=== PATIENT | male | born 1935 | race Caucasian/White ===

== ENCOUNTER → 2018-02-18 | Outpatient (CLI) | payer MEDICARE ==
[~2018-02-18] MED LIST: AMIO200T44 PO; ASPI-1181 PO; CEPH500T PO; CILO100T PO; EZET10 PO; FURO20TA4 PO; IOPAMIDOL-370 100 ML VIAL IV ONE; ISOVUE-370 50ML VIAL IV ONE; MAGN400T40 PO; METF-445 PO; METO25TA3 PO; RIVA20TA PO; ROSU20TA PO; SPIR25TA6 PO
== END | disposition home or self-care (01) ==
LOC: OIH 08:27
PROVIDERS: ATTEND Internal Medicine Cardiovascular Disease
DX: I71.4 Abdominal aortic aneurysm, without rupture (principal); N20.0 Calculus of kidney; M71.21 Synovial cyst of popliteal space [Baker], right knee; I65.23 Occlusion and stenosis of bilateral carotid arteries; I21.9 Acute myocardial infarction, unspecified; I10 Essential (primary) hypertension
CPT/HCPCS: 75635; Q9967 ×3

== ENCOUNTER → 2018-02-26 | Outpatient (CLI) | payer MEDICARE ==
[~2018-02-26] MED LIST changes: -IOPAMIDOL-370 100 ML VIAL IV ONE; -ISOVUE-370 50ML VIAL IV ONE
== END | disposition home or self-care (01) ==
LOC: SHCH 13:40
PROVIDERS: ATTEND Internal Medicine Cardiovascular Disease
DX: I65.21 Occlusion and stenosis of right carotid artery (principal); I73.9 Peripheral vascular disease, unspecified
CPT/HCPCS: 93880

== ENCOUNTER → 2018-03-10 | Outpatient (CLI) | payer MEDICARE ==
[~2018-03-10] MED LIST changes: +IOHEXOL-350 50ML VIAL IV ONE
== END | disposition home or self-care (01) ==
LOC: RAH 07:50
PROVIDERS: ATTEND Internal Medicine Cardiovascular Disease
DX: I65.23 Occlusion and stenosis of bilateral carotid arteries (principal); I10 Essential (primary) hypertension
CPT/HCPCS: 70498; Q9967

== ENCOUNTER 2018-04-30 10:00 | Inpatient (IN) | payer MEDICARE ==
[~2018-04-30] VITALS: Ht 167.6 cm; Wt 74.1 kg
[~2018-04-30 10:00] MED LIST changes: -CEPH500T PO; -IOHEXOL-350 50ML VIAL IV ONE; -MAGN400T40 PO; -METF-445 PO; -SPIR25TA6 PO
[2018-04-30 10:53] LABS: BASOPHILS % (AUTO) 0.7 % (0.0-5.0); EOSINOPHILS % (AUTO) 1.8 % (0.0-8.0); HEMATOCRIT 31.6 % (42-54); LYMPHOCYTES % (AUTO) 10.6 % (21.0-51.0); MEAN CORPUSCULAR HEMOGLOBIN 29.2 pg (27.0-33.0); MEAN CORPUSCULAR HGB CONC 31.8 g/dL (32.0-36.0); MEAN CORPUSCULAR VOLUME 91.8 fL (79-99); NEUTROPHILS % (AUTO) 78.9 % (40.0-77.0); PLATELET COUNT (AUTO) 196 K/uL (130-400); RED BLOOD CELL COUNT(AUTO) 3.45 MIL/uL (4.50-6.20); RED CELL DISTRIBUTION WIDTH 18.4 % (11.0-15.5); WHITE BLOOD COUNT (AUTO) 5.8 K/uL (4.8-10.8)
[2018-04-30 10:57] LABS: APPEARANCE,URINE CLOUDY (CLEAR); BILIRUBIN,URINE SMALL (NEGATIVE); COLOR,URINE YELLOW (YELLOW); GLUCOSE, URINE (UA) NEGATIVE (NEGATIVE); KETONES,URINE 5 mg/dL (NEGATIVE); LEUKOCYTE ESTERASE ,URINE MODERATE (NEGATIVE); NITRATE,URINE NEGATIVE (NEGATIVE); OCCULT BLOOD,URINE LARGE (NEGATIVE); PROTEIN,URINE 100 (NEGATIVE); UROBILINOGEN,URINE >=8.0 mg/dL (0.2-1.0)
[2018-04-30 11:01] VITALS: BP 110/54
[2018-04-30 11:02] LABS: CREATININE 1.4 mg/dL (0.5-1.5); POTASSIUM 3.7 mmol/L (3.5-5.1)
[2018-04-30 11:14] LABS: BACTERIA,URINE Rare /HPF (None Seen); RBC,URINE TNTC /HPF (0-1); SQUAMOUS EPITHELIAL CELL,UR Rare /HPF (0-2); WBC,URINE 26-50 /HPF (0-1)
[2018-04-30 11:30] LABS: INR 1.12 (0.85-1.15); PARTIAL THROMBOPLASTIN TIME 34.7 SEC (26.3-35.5); PROTHROMBIN TIME 11.7 SEC (9.6-11.6)
[2018-04-30] MEDS ORDERED: SPIR25TA PO (11:34)
[2018-04-30] MEDS ORDERED: MAGN250T10 PO (11:34)
[2018-04-30] MEDS ORDERED: CIPR-278 PO (11:34)
[2018-04-30] MEDS ORDERED: FERR325T29 PO (11:34)
[2018-04-30] MEDS ORDERED: METF-444 PO (11:34)
[2018-04-30] MEDS ORDERED: GABA-529 PO (11:34)
[2018-05-02] VITALS (27 sets, daily range): BP systolic 118–180; BP diastolic 60–84
[2018-05-02] MEDS ORDERED: SODIUM CHLORIDE 0.9% 1000ML 1,000 ML IV ONE (05:47)
[2018-05-02] MEDS ORDERED: HEPARIN SODIUM 1000UNIT/ML 10ML VIAL ONE (07:12)
[2018-05-02] MEDS ORDERED: SODIUM BICARB 50MEQ 50ML VIAL ONE (07:12)
[2018-05-02] MEDS ORDERED: LIDOCAINE HCL 2% 20ML ONE (07:12)
[2018-05-02] MEDS ORDERED: IODIXANOL 320 MG/ML 100 ML VIAL ONE (07:12)
[2018-05-02] MEDS ORDERED: BACITRACIN 50,000 UNIT VIAL ONE (07:26)
[2018-05-02] MEDS ORDERED: ROCURONIUM BROMIDE 10MG/1ML 5ML VL ONE (07:59)
[2018-05-02] MEDS ORDERED: NOREPINEPHRINE BITARTRATE 1 MG/1 ML ML IV ONE (08:07)
[2018-05-02] MEDS ORDERED: VASOPRESSIN 20 UNITS/ML 1ML VIAL ONE (08:18)
[2018-05-02] MEDS ORDERED: GLYCOPYRROLATE 0.2 MG/ML 5 ML VIAL ONE (09:13)
[2018-05-02] MEDS ORDERED: NEOSTIGMINE 5MG/5ML SYR IV ONE (09:15)
[2018-05-02] MEDS ORDERED: DEXTROSE 50%-WATER 50 ML DISP.SYRIN IV PRN (09:30)
[2018-05-02] MEDS ORDERED: NOREPINEPHRINE 4MG/NS 250ML 250 ML IV PRN (09:30)
[2018-05-02] MEDS ORDERED: GLUCAGON 1MG KIT 1 MG ML IM PRN (09:30)
[2018-05-02] MEDS ORDERED: NITROGLYCERIN 50 MG/D5% WATER 250 BOT IV PRN (09:30)
[2018-05-02] MEDS ORDERED: MIDAZOLAM HCL 1 MG/ML 2ML VIAL ONE (10:08)
[2018-05-02] MEDS ORDERED: PROPOFOL 10 MG/ML 20ML VIAL IV ONE (10:08)
[2018-05-02] MEDS ORDERED: FENTANYL CITRATE PF 50 MCG/1 ML 2ML VIAL ONE (10:09)
[2018-05-02] MEDS: SODIUM CHLORIDE 0.9% 1000ML 1,000 ML IV SCH (10:11)
[2018-05-02] MEDS: INSULIN HUMULIN R 100 UNIT/ML 3ML SQ SCH ×3 (11:30→20:31)
[2018-05-02] MEDS: GABAPENTIN 100 MG CAPSULE PO SCH ×2 (13:35→20:20)
[2018-05-02] MEDS ORDERED: METHYLPREDNISOLONE SOD SUCC 125MG/2ML VIAL IVP SCH (17:15)
[2018-05-02] MEDS ORDERED: DiphenhydrAMINE HCL 50 MG/ML VIAL IV SCH (17:15)
[2018-05-02 18:26] LABS: ABG BASE EXCESS -1.8 mmol/L (-2.0-3.0); ABG HCO3 21.6 mmol/L (21.0-28.0); ABG OXYGEN SATURATION 98.2 % (95.0-99.0); ABG PCO2 33 mmHg (35-48)
[2018-05-02] MEDS: CILOSTAZOL 100 MG TAB PO SCH (20:19)
[2018-05-02] MEDS: SPIRONOLACTONE 25 MG TAB PO SCH (20:20)
[2018-05-02] MEDS: METOPROLOL TARTRATE 25 MG TAB PO SCH (20:20)
[2018-05-02] MEDS ORDERED: CEFAZOLIN SODIUM 1 GM VIAL IVP SCH (21:00)
[2018-05-02] MEDS ORDERED: RIVAROXABAN 20 MG TABLET PO SCH (21:00)
[2018-05-02] MEDS ORDERED: EZETIMIBE 10 MG TAB PO SCH (21:00)
[2018-05-02] MEDS ORDERED: ATORVASTATIN CALCIUM 40 MG TABLET PO SCH (21:00)
[2018-05-03] VITALS (17 sets, daily range): BP systolic 105–147; BP diastolic 54–83
[2018-05-03] MEDS: SODIUM CHLORIDE 0.9% 1000ML 1,000 ML IV SCH (02:09)
[2018-05-03 04:04] LABS: MEAN CORPUSCULAR HEMOGLOBIN 30.3 pg (27.0-33.0); MEAN CORPUSCULAR HGB CONC 33.3 g/dL (32.0-36.0); MEAN CORPUSCULAR VOLUME 90.9 fL (79-99); PLATELET COUNT (AUTO) 231 K/uL (130-400); RED CELL DISTRIBUTION WIDTH 18.4 % (11.0-15.5); WHITE BLOOD COUNT (AUTO) 7.2 K/uL (4.8-10.8)
[2018-05-03 04:08] LABS: CREATININE 1.2 mg/dL (0.5-1.5)
[2018-05-03] MEDS: INSULIN HUMULIN R 100 UNIT/ML 3ML SQ SCH ×2 (06:24→11:35)
[2018-05-03] MEDS: METOPROLOL TARTRATE 25 MG TAB PO SCH (08:27)
[2018-05-03] MEDS: SPIRONOLACTONE 25 MG TAB PO SCH (08:27)
[2018-05-03] MEDS: GABAPENTIN 100 MG CAPSULE PO SCH ×2 (08:27→14:23)
[2018-05-03] MEDS: CILOSTAZOL 100 MG TAB PO SCH (08:28)
[2018-05-03] MEDS ORDERED: ASPIRIN 81 MG EC TAB PO SCH (09:00)
[2018-05-03] MEDS ORDERED: AMIODARONE HCL 200 MG TABLET PO SCH (09:00)
[2018-05-03] MEDS ORDERED: MAGNESIUM OXIDE 400 MG TABLET PO SCH (09:00)
[2018-05-03] MEDS ORDERED: FERROUS SULFATE 325 MG TABLET.DR PO SCH (09:00)
[2018-05-03] MEDS ORDERED: FUROSEMIDE 20 MG TABLET PO SCH (09:00)
[2018-05-03] MEDS ORDERED: LEVOFLOXACIN 500 MG TABLET PO SCH (09:00)
[2018-05-03] MEDS ORDERED: RIVAROXABAN 20 MG TABLET PO SCH (21:00)
== END 2018-05-03 15:35 | disposition home or self-care (01) | DRG 39 ==
LOC: EDSTATUS 10:00 → DAHIP 05-02 05:30 → 2CV 05-02 09:59 → 2CH 05-02 13:13
PROVIDERS: ADMIT Internal Medicine Cardiovascular Disease; ATTEND Internal Medicine Cardiovascular Disease
PROC: 037 Upper Arteries, Dilation (ICD-10-PCS; 2018-05-02)
PROC: 03QH0ZZ Repair Right Common Carotid Artery, Open Approach (ICD-10-PCS; 2018-05-02)
PROC: 037K0DZ Dilation of Right Internal Carotid Artery with Intraluminal Device, Open Approach (ICD-10-PCS; principal; 2018-05-02 07:00)
DX: I65.21 Occlusion and stenosis of right carotid artery (principal); I25.5 Ischemic cardiomyopathy; E78.5 Hyperlipidemia, unspecified; I10 Essential (primary) hypertension; I25.10 Atherosclerotic heart disease of native coronary artery without angina pectoris; I71.4 Abdominal aortic aneurysm, without rupture; N40.0 Benign prostatic hyperplasia without lower urinary tract symptoms; Z79.01 Long term (current) use of anticoagulants; Z95.1 Presence of aortocoronary bypass graft
CPT/HCPCS: 36415; 36600; 37215; 37218; 71045; 80048; 81001; 82803; 82948; 85025; 85027; 85347; 85610; 85730; 86850; 86900; 86901; 86922; 93005; C1725; G0378; J0690; J1200; J1644; J1815; J2250; J2704; J2710; J2930; J3010; J3490; J7030; J7120; Q9967

== ENCOUNTER → 2018-05-29 | Outpatient (CLI) | payer MEDICARE ==
[~2018-05-29] MED LIST changes: +CIPR-278 PO; +FERR325T29 PO; +GABA-529 PO; +MAGN250T10 PO; +METF-444 PO; +SPIR25TA PO
== END | disposition home or self-care (01) ==
LOC: SHCH 14:45
PROVIDERS: ATTEND Internal Medicine Cardiovascular Disease
DX: I65.23 Occlusion and stenosis of bilateral carotid arteries (principal)
CPT/HCPCS: 93880

== ENCOUNTER 2020-03-09 15:40 | Inpatient (IN) | payer MEDICARE ==
[~2020-03-09] VITALS: Ht 167.6 cm; Wt 77.3 kg
[~2020-03-09 15:40] MED LIST changes: -ALOG12.52 PO; -CYAN10007 IJ; -IOHEXOL 350 MG/ML 100ML INFUS..BTL IV ONE; -IPRATROPIUM BROMIDE; -LEVO75TA10 PO; -PREG25 PO; -TRAM50TA2 PO
[2020-03-09 16:33] LABS: BASOPHILS % (AUTO) 0.5 % (0.0-5.0); EOSINOPHILS % (AUTO) 1.7 % (0.0-8.0); HEMATOCRIT 33.7 % (42-54); LYMPHOCYTES % (AUTO) 18.8 % (21.0-51.0); MEAN CORPUSCULAR HEMOGLOBIN 31.9 pg (27.0-33.0); MEAN CORPUSCULAR HGB CONC 31.8 g/dL (32.0-36.0); MEAN CORPUSCULAR VOLUME 100.6 fL (79-99); MONOCYTES % (AUTO) 7.4 % (3.0-13.0); NEUTROPHILS % (AUTO) 71.3 % (40.0-77.0); PLATELET COUNT (AUTO) 136 K/uL (130-400); RED BLOOD CELL COUNT(AUTO) 3.35 MIL/uL (4.50-6.20); RED CELL DISTRIBUTION WIDTH 14.6 % (11.0-15.5)
[2020-03-09 16:43] LABS: INR 1.63 (0.85-1.15); PARTIAL THROMBOPLASTIN TIME 37.1 SEC (26.3-35.5); PROTHROMBIN TIME 17.3 SEC (9.6-11.6)
[2020-03-09 16:56] LABS: CREATININE 1.7 mg/dL (0.5-1.5); POTASSIUM 4.5 mmol/L (3.5-5.1)
[2020-03-09 16:59] LABS: ALBUMIN 3.4 g/dL (3.5-5.0); BILIRUBIN,TOTAL 0.5 mg/dL (0.2-1.0); TOTAL PROTEIN, SERUM 6.8 g/dL (6.0-8.3)
[2020-03-09] MEDS ORDERED: GLUCAGON 1MG KIT 1 MG ML IM PRN (17:15)
[2020-03-09] MEDS ORDERED: METOPROLOL TARTRATE 1 MG/ML 5ML VIAL IV PRN (17:15)
[2020-03-09] MEDS ORDERED: ONDANSETRON HCL 4 MG/2 ML VIAL IVP PRN (17:15)
[2020-03-09] MEDS ORDERED: DEXTROSE 50%-WATER 50 ML DISP.SYRIN IV PRN (17:15)
[2020-03-09] MEDS ORDERED: ALOG12.52 PO (17:28)
[2020-03-09] MEDS ORDERED: CYAN10007 IJ (17:28)
[2020-03-09] MEDS ORDERED: LEVO75TA10 PO (17:28)
[2020-03-09] MEDS ORDERED: TRAM50TA2 PO (17:28)
[2020-03-09] MEDS ORDERED: IPRATROPIUM BROMIDE (17:28)
[2020-03-09] MEDS ORDERED: PREG25 PO (17:28)
[2020-03-09 19:04] LABS: APPEARANCE,URINE Clear (CLEAR); BILIRUBIN,URINE Negative (NEGATIVE); COLOR,URINE Yellow (YELLOW); GLUCOSE, URINE (UA) Negative (NEGATIVE); KETONES,URINE Negative (NEGATIVE); LEUKOCYTE ESTERASE ,URINE Negative (NEGATIVE); NITRATE,URINE Negative (NEGATIVE); OCCULT BLOOD,URINE Negative (NEGATIVE); PH,URINE 6.5 (5.0-8.0); PROTEIN,URINE Trace mg/dL (NEGATIVE)
[2020-03-09 19:13] LABS: RBC,URINE 0-1 /HPF (0-1); WBC,URINE 0-1 /HPF (0-1)
[2020-03-09 19:14] LABS: BACTERIA,URINE Rare /HPF (None Seen); MUCUS,URINE Rare LPF (None Seen); SQUAMOUS EPITHELIAL CELL,UR Rare /HPF (0-2)
[2020-03-09 21:09] VITALS: BP 157/86
[2020-03-09] MEDS: INSULIN HUMULIN R 100 UNIT/ML 3ML SQ SCH (23:07)
[2020-03-09 23:43] VITALS: BP 119/65
[2020-03-10] VITALS (18 sets, daily range): BP systolic 100–157; BP diastolic 57–80
[2020-03-10 05:27] LABS: BASOPHILS % (AUTO) 0.7 % (0.0-5.0); EOSINOPHILS % (AUTO) 1.7 % (0.0-8.0); LYMPHOCYTES % (AUTO) 18.8 % (21.0-51.0); MEAN CORPUSCULAR HEMOGLOBIN 32.1 pg (27.0-33.0); MEAN CORPUSCULAR VOLUME 100.3 fL (79-99); MONOCYTES % (AUTO) 9.6 % (3.0-13.0); PLATELET COUNT (AUTO) 130 K/uL (130-400); RED BLOOD CELL COUNT(AUTO) 2.99 MIL/uL (4.50-6.20); RED CELL DISTRIBUTION WIDTH 14.6 % (11.0-15.5); WHITE BLOOD COUNT (AUTO) 6.1 K/uL (4.8-10.8)
[2020-03-10 05:56] LABS: ALBUMIN 2.9 g/dL (3.5-5.0); BILIRUBIN,TOTAL 0.6 mg/dL (0.2-1.0); CREATININE 1.6 mg/dL (0.5-1.5); POTASSIUM 3.7 mmol/L (3.5-5.1); TOTAL PROTEIN, SERUM 5.9 g/dL (6.0-8.3)
[2020-03-10] MEDS: INSULIN HUMULIN R 100 UNIT/ML 3ML SQ SCH ×2 (07:16→21:00)
--- NOTE | 2020-03-10 07:40 | NUR ---
ASSESSMENT ENCOUNTERED PT A&OX3, CALM COOPERATIVE AND DOES NOT APPEAR TO BE IN ANY DISTRESS NOR ANY NEURO DEFICITS PRESENT. PT DENIES SOB, NAUSEA BUT DOES C/O CHRONIC RLE DISCOMFORT. DR GOMEZ AT BEDSIDE, UPDATE GIVEN, ORDERS RECEIVED, PT IS NPO FOR PENDING PROCEDURE BY DR GOMEZ. CALL LIGHT WITHIN REACH.
[2020-03-10] MEDS: PREGABALIN 25 MG CAP PO SCH ×2 (09:41→21:00)
[2020-03-10] MEDS: ACETAMINOPHEN 325 MG TAB PO PRN (09:41)
--- NOTE | 2020-03-10 13:30 | NUR ---
preop received pt via bed. pt in no distress. pt here for endoluminal. pt oriented to room and call light. will continue to monitor
--- NOTE | 2020-03-10 13:43 | NUR ---
IA NOT DONE. Contacts listed not answering.
[2020-03-10] MEDS ORDERED: CEFAZOLIN SODIUM 1 GM VIAL ONE (14:07)
[2020-03-10] MEDS ORDERED: HEPARIN SODIUM 1000UNIT/ML 10ML VIAL ONE (14:07)
[2020-03-10] MEDS ORDERED: IODIXANOL 320 MG/ML 100 ML VIAL ONE ×2 (14:07→17:23)
[2020-03-10] MEDS ORDERED: ONDANSETRON HCL 4 MG/2 ML VIAL ONE (14:16)
[2020-03-10] MEDS ORDERED: MIDAZOLAM HCL 1 MG/ML 2ML VIAL ONE (14:16)
[2020-03-10] MEDS ORDERED: FENTANYL CITRATE PF 50 MCG/1 ML 2ML VIAL ONE (14:16)
[2020-03-10] MEDS ORDERED: DEXAMETHASONE SOD PHOSPHATE 10MG/ML 1ML VIAL ONE (14:16)
[2020-03-10] MEDS ORDERED: LIDOCAINE PF 2% 5ML ABBOJECT ONE (14:16)
[2020-03-10] MEDS ORDERED: PROPOFOL 10 MG/ML 20ML VIAL IV ONE (14:16)
[2020-03-10] MEDS ORDERED: ROCURONIUM 10MG/1ML SYR 10 MG/ML ML ONE (14:17)
[2020-03-10] MEDS ORDERED: GLYCOPYRROLATE 1 MG/5 ML SYRINGE ONE (14:18)
[2020-03-10] MEDS ORDERED: NEOSTIGMINE 5MG/5ML SYR IV ONE (14:18)
[2020-03-10] MEDS ORDERED: EPHEDRINE SULFATE 50 MG/ML AMPULE ONE (14:19)
[2020-03-10] MEDS ORDERED: PHENYLEPHRINE HCL 10 MG/ML 1ML VIAL IV ONE (16:24)
[2020-03-10] MEDS ORDERED: ONDANSETRON HCL 4 MG/2 ML VIAL IV PRN (19:30)
[2020-03-10] MEDS ORDERED: PHARMACY COMMUNICATION MISC SCH (19:30)
[2020-03-10] MEDS ORDERED: MORPHINE SULFATE 4 MG/1ML SYG IV PRN (19:30)
[2020-03-10] MEDS ORDERED: SODIUM CHLORIDE 0.9% 1000ML 1,000 ML IV SCH (19:30)
[2020-03-10] MEDS ORDERED: NITROGLYCERIN 50 MG/D5% WATER 250 BOT IV SCH (20:15)
[2020-03-10] MEDS ORDERED: NOREPINEPHRINE 4MG/NS 250ML IV SCH (20:15)
[2020-03-10] MEDS ORDERED: IPRATROPIUM/ALBUTEROL SULFATE 3 ML SOLUTION IH PRN (22:00)
[2020-03-10] MEDS: IPRATROPIUM/ALBUTEROL SULFATE 3 ML SOLUTION IH SCH (22:42)
[2020-03-11] VITALS (73 sets, daily range): BP systolic 89–147; BP diastolic 30–90
[2020-03-11] MEDS: MORPHINE SULFATE 2 MG/ML 1ML SYG IVP PRN ×3 (02:24→23:26)
[2020-03-11] MEDS: IPRATROPIUM/ALBUTEROL SULFATE 3 ML SOLUTION IH SCH ×6 (02:55→23:07)
[2020-03-11] MEDS ORDERED: CEFAZOLIN SODIUM 1 GM VIAL ONE (03:38)
[2020-03-11 03:43] LABS: MEAN CORPUSCULAR HEMOGLOBIN 32.3 pg (27.0-33.0); MEAN CORPUSCULAR HGB CONC 31.7 g/dL (32.0-36.0); MEAN CORPUSCULAR VOLUME 101.8 fL (79-99); RED BLOOD CELL COUNT(AUTO) 2.85 MIL/uL (4.50-6.20); RED CELL DISTRIBUTION WIDTH 14.8 % (11.0-15.5); WHITE BLOOD COUNT (AUTO) 8.9 K/uL (4.8-10.8)
[2020-03-11 03:51] LABS: CREATININE 1.2 mg/dL (0.5-1.5); POTASSIUM 4.2 mmol/L (3.5-5.1)
[2020-03-11] MEDS ORDERED: CEFAZOLIN SODIUM 1 GM VIAL IVP SCH (06:00)
--- NOTE | 2020-03-11 06:10 | NUR ---
Cough Pt came up to ICU roughly 8pm. Pt continuously having strong coughing throughout night. Left groin began to bleed. Pressure was applied and dressing changed on both groins. Pt stated that he was having phlegm from sinus's lying flat and this does happen occasionally at home. Received orders for DuoNeb's Q4 for cough and PRN Q6 for SOB. Will continue to monitor sites for bleeding
[2020-03-11] MEDS: INSULIN HUMULIN R 100 UNIT/ML 3ML SQ SCH ×4 (07:30→21:00)
[2020-03-11] MEDS ORDERED: FUROSEMIDE 10 MG/ML 2ML VIAL IV SCH (07:45)
[2020-03-11] MEDS: PREGABALIN 25 MG CAP PO SCH ×2 (08:08→21:00)
[2020-03-11] MEDS: TAMSULOSIN HCL 0.4 MG CAP.ER.24H PO SCH (12:49)
[2020-03-11] MEDS: GUAIFENESIN-CODEINE 5 ML SYRUP PO PRN (12:49)
--- NOTE | 2020-03-11 15:22 | NUR ---
DC PLAN VISITED WITH PATIENT. PATIENT SLEEPING. CALLED SON TIFFANIE [phone]. SAID THAT HE HAS NOT SEEN DAD IN LONG TIME SAYS HE DOES TALK TO HIM ONCE A MONTH. SAID HE THINKS BRITTANY PARHAM DAUGHTER LIVES WITH HIM. NOT SURE ON EQUIPMENT THINKS USES A WALKER. CONFIRMED PHONE NUMBER SAID HE SPOKE TO HER YESTERDAY [phone]. [facility]TON WILL CONTINUE TO FOLLOW. Addendum: 03/11/20 at 1527 by KEVIN SMALL RN CM Amended: Links added.
--- NOTE | 2020-03-11 16:04 | NUR ---
DYSPHAGIA EVAL COMPLETED. +S/S OF ASPIRATION WITH ALL TEXTURES. RECOMMEND NPO SHORT-TERM. RECOMMENDATIONS: 1. RE-EVALUATION IN 1-2 DAYS Addendum: 03/11/20 at 1607 by DEBBIE HOLMAN, [facility] Amended: Links added.
--- NOTE | 2020-03-11 16:44 | NUR ---
DR EVANS NOTIFIED OF SPEECH THERAPY EVAL STUDIES; NO NEW ORDERS AT THIS TIME
--- NOTE | 2020-03-11 19:13 | NUR ---
HANDOFF OF CARE PATIENT PENDING TRANSFER TO 422. REPORT GIVEN TO SALINA CARO RN. OF YET, ROOM HAS NOT BEEN CLEANED, THEREFORE SENIOR C SOFTWARE DEVELOPER STAFF WILL NEED TO TRANSFER THIS PATIENT TO THE ROOM.
--- NOTE | 2020-03-11 19:30 | NUR ---
REPORT OBTAINED FROM CARSON RAMOS. PT IS BEING DOWNGRADED. WILL BE TRANSFERRED TO 422.
[2020-03-11] MEDS: METOPROLOL SUCCINATE 12.5 MG PO SCH (21:00)
[2020-03-11] MEDS ORDERED: METOPROLOL SUCCINATE 12.5 MG PO SCH (21:00)
[2020-03-11] MEDS: DOCUSATE SODIUM 100 MG CAP PO SCH (21:00)
[2020-03-11] MEDS ORDERED: NON-FORMULARY MEDICATION 1 EACH (Rosuvastatin Calcium (Crestor) 20 MG) PO SCH (21:00)
[2020-03-11] MEDS: EZETIMIBE 10 MG TAB PO SCH (21:00)
[2020-03-11] MEDS: ATORVASTATIN CALCIUM 40 MG TABLET PO SCH (21:00)
--- NOTE | 2020-03-11 22:00 | NUR ---
PT NOT GIVEN MEDICATIONS DUE TO NPO STATUS PER DR. GOMEZ. HE FAILED THE SWALLOW EXAM DONE BY [facility] UNTIL REEVALUATED IN THE AM. NO DISTRESS NOTED. PT ABLE TO STATE CONCERNS. VPACED. 70.
[2020-03-12] VITALS: BP 106/50
[2020-03-12] MEDS: IPRATROPIUM/ALBUTEROL SULFATE 3 ML SOLUTION IH SCH ×6 (02:13→21:48)
[2020-03-12 04:00] VITALS: BP 120/56
[2020-03-12 05:13] LABS: HEMATOCRIT 25.5 % (42-54); MEAN CORPUSCULAR HEMOGLOBIN 31.7 pg (27.0-33.0); MEAN CORPUSCULAR HGB CONC 31.4 g/dL (32.0-36.0); MEAN CORPUSCULAR VOLUME 101.2 fL (79-99); RED BLOOD CELL COUNT(AUTO) 2.52 MIL/uL (4.50-6.20); RED CELL DISTRIBUTION WIDTH 15.4 % (11.0-15.5); WHITE BLOOD COUNT (AUTO) 6.6 K/uL (4.8-10.8)
[2020-03-12 05:38] LABS: CREATININE 1.6 mg/dL (0.5-1.5); MAGNESIUM 1.8 mg/dL (1.80-2.40); PHOSPHORUS 3.8 mg/dL (2.5-4.9)
[2020-03-12] MEDS: INSULIN HUMULIN R 100 UNIT/ML 3ML SQ SCH ×5 (05:55→20:39)
[2020-03-12] MEDS: FERROUS SULFATE 325 MG TABLET.DR PO SCH (07:44)
[2020-03-12] MEDS: BISACODYL 5 MG TABLET.DR PO SCH (07:44)
[2020-03-12] MEDS: PREGABALIN 25 MG CAP PO SCH ×2 (07:44→19:54)
[2020-03-12] MEDS: DOCUSATE SODIUM 100 MG CAP PO SCH ×2 (07:44→19:55)
[2020-03-12] MEDS: AMIODARONE HCL 200 MG TABLET PO SCH (07:44)
[2020-03-12] MEDS: TAMSULOSIN HCL 0.4 MG CAP.ER.24H PO SCH (07:44)
[2020-03-12] MEDS ORDERED: LEVOTHYROXINE 75 MCG TABLET ONE (07:45)
[2020-03-12] MEDS: LEVOTHYROXINE 75 MCG TABLET PO SCH (07:45)
--- NOTE | 2020-03-12 08:00 | NUR ---
ASSESSMENT PT IS AAOX3 DENIES CP DENIES SOB DENIES NV. BREATHING PATTERN IS EVEN AND UNLABORED. NO VISIBLE SIGNS OF DISTRESS NOTED. BILATERAL GROIN SITES WITH DRESSINGS OVER SITES CLEAN DRY AND INTACT. I SAT PATIENT UPRIGHT IN BED TO MAX DEGREES BED WOULD ALLOW, GAVE PATIENT SMALL AMOUNTS OF APPLESAUCE AND USED CHIN TUCK METHOD, PATIENT WAS ABLE TO SWALLOW SAUCE AND NO COUGHING EXHIBITED BY PATIENT. AM MEDS GIVEN CRUSHED IN APPLE SAUCE, NO COUGHING OR CHOKING NOTED WELL. PENDING SPEECH EVAL FOR OFFICIAL RECOMMENDATIONS. CALL LIGHT WITHIN REACH.
[2020-03-12 08:36] VITALS: BP 111/58
[2020-03-12] MEDS ORDERED: FERROUS SULFATE 325 MG PO SCH (09:00)
[2020-03-12] MEDS: GUAIFENESIN-CODEINE 5 ML SYRUP PO PRN ×2 (10:56→19:54)
[2020-03-12 12:10] VITALS: BP 96/41
--- NOTE | 2020-03-12 12:30 | NUR ---
Dorys ZEPEDA REVENUE DIRECTOR ROUNDED SAW PATIENT, ORDERS RECEIVED
--- NOTE | 2020-03-12 14:35 | NUR ---
DYSPHAGIA EVAL COMPLETED. Pt CONTINUES WITH +S/S OF ASPIRATION AT THIS TIME WITH THIN LIQUIDS, PUREE, AND PUDDING TEXTURES. RECOMMEND NPO SHORT TERM. TRAFFIC SAFETY ADMINISTRATOR RECOMMENDED SHORT TERM ALTERNATE MEANS OF NUTRITION HYDRATION WITH SPEECH THERAPY 2-5X WEEK. PATIENT DID NOT AGREE TO SHORT TERM ALTERNATE MEANS OF NUTRITION HYDRATION AT THIS TIME. TRAFFIC SAFETY ADMINISTRATOR WILL FOLLOW PATIENT TOMORROW. POSSIBLE MBSS RECOMMENDED TOMORROW IF PATIENT CONTINUES WITH +S/S OF ASPIRATION WITH ALL TEXTURES. TRAFFIC SAFETY ADMINISTRATOR EDUCATED PATIENT ON RISKS AND CONSEQUENCES OF ASPIRATION AND PATIENT VOICED UNDERSTANDING. TRAFFIC SAFETY ADMINISTRATOR COORDINATED WITH NURSE CHENEY AND SUPERVISOR FARM EQUIPMENT MAINTENANCE MARIYA. RECOMMENDATIONS: 1. DYSPHAGIA THERAPY 2-5x WEEK TO INCREASE PHARYNGEAL SWALLOW: LTG#1: Pt WILL TOLERATE LEAST RESTRICTIVE DIET TO MEET NUTRITION/HYDRATION WITH NO S/S OF ASPIRATION. LTG#2: SKILLED EDUCATION Pt/FAMILY/STAFF STG#1: Pt WILL PARTICIPATE IN LARYNGEAL ELEVATION/EXCURSION EXERCISES WITH 80% ACCURACY. STG#2: Pt WILL TOLERATE ADVANCED TRIALS OF PUDDING, PUREE, AND HONEY THICK TEXTURES WITH NO OVERT S/S OF ASPIRATION. STG#3: SKILLED EDUCATION Pt/FAMILY/STAFF. Addendum: 03/12/[address] ROMY MA Amended: Links added.
[2020-03-12 17:29] VITALS: BP 118/56
[2020-03-12] MEDS: ATORVASTATIN CALCIUM 40 MG TABLET PO SCH (19:54)
[2020-03-12] MEDS: FUROSEMIDE 10 MG/ML 2ML VIAL IV SCH (19:54)
[2020-03-12] MEDS: EZETIMIBE 10 MG TAB PO SCH (19:54)
[2020-03-12] MEDS: METOPROLOL SUCCINATE 12.5 MG PO SCH (19:56)
[2020-03-12 20:08] VITALS: BP 116/63
[2020-03-12] MEDS ORDERED: CLOPIDOGREL BISULFATE 300 MG TAB PO SCH (20:40)
--- NOTE | 2020-03-12 22:40 | NUR ---
PT CONTINUES WITH COUGH. GIVEN PRN COUGH MEDICATION WITH CODEINE AND PT STILL CONTINUES COUGHING. IS ON PRECAUTIONS FOR ASPIRATION DUE TO FAILING SWALLOW TEST. WAS ORDERED TO BE GIVEN MEDS CRUSHED WITH APPLE SAUCE. NO PHLEGM NOTED.
--- NOTE | 2020-03-12 23:00 | NUR ---
PT CONTINUES COUGHING, PAGED HOSPITALIST HYDROPRESS OPERATOR. NEW ORDER FOR TESSALON PEARLS 200MG TID PRN. PT ALREADY ON DUONEBS. PT ABLE TO TAKE MEDICATIONS. COUGH MINIMIZED AFTER 20 MINUTES. PT IN BED. EYES CLOSED. NO DISTRESS NOTED.
[2020-03-12] MEDS ORDERED: BENZONATATE 100 MG CAPSULE PO ONE (23:41)
[2020-03-13 00:08] VITALS: BP 126/56
[2020-03-13] MEDS: IPRATROPIUM/ALBUTEROL SULFATE 3 ML SOLUTION IH SCH ×6 (02:46→22:47)
[2020-03-13 04:08] VITALS: BP 117/59
[2020-03-13] MEDS: INSULIN HUMULIN R 100 UNIT/ML 3ML SQ SCH ×4 (05:42→20:42)
[2020-03-13 06:03] LABS: BASOPHILS % (AUTO) 0.3 % (0.0-5.0); EOSINOPHILS % (AUTO) 2.9 % (0.0-8.0); LYMPHOCYTES % (AUTO) 5.1 % (21.0-51.0); MEAN CORPUSCULAR HEMOGLOBIN 31.9 pg (27.0-33.0); MEAN CORPUSCULAR HGB CONC 31.7 g/dL (32.0-36.0); MEAN CORPUSCULAR VOLUME 100.8 fL (79-99); MONOCYTES % (AUTO) 7.5 % (3.0-13.0); NEUTROPHILS % (AUTO) 83.7 % (40.0-77.0); PLATELET COUNT (AUTO) 89 K/uL (130-400); RED BLOOD CELL COUNT(AUTO) 2.38 MIL/uL (4.50-6.20); RED CELL DISTRIBUTION WIDTH 15.1 % (11.0-15.5); WHITE BLOOD COUNT (AUTO) 5.9 K/uL (4.8-10.8)
[2020-03-13 06:26] LABS: CREATININE 1.4 mg/dL (0.5-1.5); POTASSIUM 3.5 mmol/L (3.5-5.1)
[2020-03-13] MEDS: LEVOTHYROXINE 75 MCG TABLET PO SCH (06:26)
[2020-03-13] MEDS: GUAIFENESIN-CODEINE 5 ML SYRUP PO PRN (06:29)
[2020-03-13 07:34] VITALS: BP 113/45
[2020-03-13] MEDS: TAMSULOSIN HCL 0.4 MG CAP.ER.24H PO SCH (07:44)
[2020-03-13] MEDS: ASPIRIN 81MG TAB.CHEW PO SCH (07:44)
[2020-03-13] MEDS: AMIODARONE HCL 200 MG TABLET PO SCH (07:45)
[2020-03-13] MEDS: DOCUSATE SODIUM 100 MG CAP PO SCH ×2 (07:45→20:42)
[2020-03-13] MEDS: PREGABALIN 25 MG CAP PO SCH ×2 (07:45→20:45)
[2020-03-13] MEDS: BISACODYL 5 MG TABLET.DR PO SCH (07:45)
[2020-03-13] MEDS: FUROSEMIDE 10 MG/ML 2ML VIAL IV SCH (07:45)
[2020-03-13] MEDS: FERROUS SULFATE 325 MG TABLET.DR PO SCH (07:45)
[2020-03-13] MEDS: CLOPIDOGREL BISULFATE 75 MG TAB PO SCH (07:45)
--- NOTE | 2020-03-13 08:00 | NUR ---
ASSESSMENT PT IS AAOX3 DENIES CP DENIES SOB DENIES NV. BREATHING PATTERN IS EVEN AND UNLABORED. NO VISIBLE SIGNS OF DISTRESS NOTED. AM MEDS GIVEN CRUSHED IN APPLE SAUCE, NO COUGHING OR CHOKING NOTED. CALL LIGHT WITHIN REACH.
[2020-03-13 11:28] VITALS: BP 112/56
[2020-03-13 13:56] LABS: BASOPHILS % (AUTO) 0.2 % (0.0-5.0); EOSINOPHILS % (AUTO) 1.1 % (0.0-8.0); LYMPHOCYTES % (AUTO) 5.7 % (21.0-51.0); MEAN CORPUSCULAR HEMOGLOBIN 32.1 pg (27.0-33.0); MEAN CORPUSCULAR HGB CONC 31.7 g/dL (32.0-36.0); MEAN CORPUSCULAR VOLUME 101.3 fL (79-99); MONOCYTES % (AUTO) 7.1 % (3.0-13.0); NEUTROPHILS % (AUTO) 85.5 % (40.0-77.0); PLATELET COUNT (AUTO) 89 K/uL (130-400); RED BLOOD CELL COUNT(AUTO) 2.37 MIL/uL (4.50-6.20); WHITE BLOOD COUNT (AUTO) 5.2 K/uL (4.8-10.8)
[2020-03-13 15:24] VITALS: BP 146/65
--- NOTE | 2020-03-13 16:50 | NUR ---
SWALLOWING TREATMENT COMPLETED: MBSS RECOMMENDED. S: Pt COOPERATIVE AND AGREED TO ST THERAPY AT BEDSIDE. RADIATION MONITOR REPOSITION PATIENT TO 90 DEGREES BEFORE THERAPEUTIC TRIALS. Pt CONTINUES NPO FOR MEALS. TIMOTHY MERAZ AND NURSE CHENEY REPORT PATIENT TOOK MEDICATION WITH APPLESAUCE WITH NO S/S OF ASPIRATION DURING PRESENTATION. O: PATIENT CURRENTLY TARGETING SWALLOWING GOALS, RESULTS ARE FOLLOWS: STG#1: Pt WILL PARTICIPATE IN LARYNGEAL ELEVATION/EXCURSION EXERCISES WITH 80% ACCURACY: 70% ACCURACY; PATIENT WITH DECREASED LARYNGEAL ELEVATION/EXCURSION DURING MANUAL PALPATION. STG#2: Pt WILL TOLERATE ADVANCED TRIALS OF PUDDING, PUREE, AND HONEY THICK TEXTURES WITH NO OVERT S/S OF ASPIRATION: PATIENT CONTINUES WITH +S/S OF ASPIRATION OF IMMEDIATE SUPER COUGHS WITH PUDDING AND DELAYED SUPER COUGHS WITH THIN LIQUIDS. STG#3: SKILLED EDUCATION Pt/FAMILY/STAFF: COMPLETED. PATIENT VOICED UNDERSTANDING OF RISKS AND CONSEQUENCES OF ASPIRATION. A: PATIENT CONTINUES WITH +S/S OF ASPIRATION OF SUPER IMMEDIATE AND DELAYED COUGHS WITH ALL TEXTURES EVIDENCED BY DECREASED LARYNGEAL ELEVATION/EXCURSION DURING MANUAL PALPATION. P: RECOMMEND NPO AT THIS TIME. PATIENT AT HIGH RISK FOR ASPIRATION WITH ALL TEXTURES. MBSS RECOMMENDED AT THIS TIME. RADIATION MONITOR COORDINATED WITH NURSE CHENEY. ALL QUESTIONS ANSWERED. RECOMMEND CONTINUED SKILLED SPEECH THERAPY TARGETING SWALLOWING GOALS. RADIATION MONITOR WILL CONTINUE TO FOLLOW PATIENT. Addendum: 03/13/[address] [facility] MA Amended: Links added.
[2020-03-13 20:04] VITALS: BP 121/60
[2020-03-13] MEDS: METOPROLOL SUCCINATE 12.5 MG PO SCH (20:42)
[2020-03-13] MEDS: BENZONATATE 100 MG CAPSULE PO PRN (20:45)
[2020-03-13] MEDS: EZETIMIBE 10 MG TAB PO SCH (20:45)
[2020-03-13] MEDS: ATORVASTATIN CALCIUM 40 MG TABLET PO SCH (20:45)
[2020-03-13] MEDS: ACETAMINOPHEN 325 MG TAB PO PRN (21:01)
--- NOTE | 2020-03-13 23:00 | NUR ---
PT GIVEN TESSALON PEARLS. COUGH HAS IMPROVED. PT DOES MINIMALLY COUGH, WHEN TAKING MEDICATIONS THAT ARE CRUSHED. STATES PAIN TO LEGS. GIVEN TYLENOL WELL. PT IS CONCERNED BECAUSE ACTIVITY LEVELS HAVE DECREASED.
[2020-03-14] VITALS (7 sets, daily range): BP systolic 101–131; BP diastolic 43–65
[2020-03-14] MEDS: IPRATROPIUM/ALBUTEROL SULFATE 3 ML SOLUTION IH SCH ×6 (02:50→21:23)
[2020-03-14] MEDS: LEVOTHYROXINE 75 MCG TABLET PO SCH (05:28)
[2020-03-14] MEDS: INSULIN HUMULIN R 100 UNIT/ML 3ML SQ SCH ×4 (06:04→20:55)
[2020-03-14 06:42] LABS: BASOPHILS % (AUTO) 0.4 % (0.0-5.0); EOSINOPHILS % (AUTO) 1.8 % (0.0-8.0); HEMATOCRIT 24.2 % (42-54); LYMPHOCYTES % (AUTO) 6.4 % (21.0-51.0); MEAN CORPUSCULAR HEMOGLOBIN 31.9 pg (27.0-33.0); MEAN CORPUSCULAR HGB CONC 31.4 g/dL (32.0-36.0); MEAN CORPUSCULAR VOLUME 101.7 fL (79-99); MONOCYTES % (AUTO) 7.4 % (3.0-13.0); NEUTROPHILS % (AUTO) 83.8 % (40.0-77.0); PLATELET COUNT (AUTO) 94 K/uL (130-400); RED BLOOD CELL COUNT(AUTO) 2.38 MIL/uL (4.50-6.20); WHITE BLOOD COUNT (AUTO) 5.1 K/uL (4.8-10.8)
[2020-03-14 06:46] LABS: CREATININE 1.2 mg/dL (0.5-1.5); POTASSIUM 3.7 mmol/L (3.5-5.1)
[2020-03-14] MEDS: DOCUSATE SODIUM 100 MG CAP PO SCH ×2 (09:00→20:49)
[2020-03-14] MEDS: PREGABALIN 25 MG CAP PO SCH ×2 (09:19→20:49)
[2020-03-14] MEDS: TAMSULOSIN HCL 0.4 MG CAP.ER.24H PO SCH (09:19)
[2020-03-14] MEDS: BISACODYL 5 MG TABLET.DR PO SCH (09:20)
[2020-03-14] MEDS: BENZONATATE 100 MG CAPSULE PO PRN (09:23)
[2020-03-14] MEDS: ASPIRIN 81MG TAB.CHEW PO SCH (09:24)
[2020-03-14] MEDS: AMIODARONE HCL 200 MG TABLET PO SCH (09:25)
[2020-03-14] MEDS: CLOPIDOGREL BISULFATE 75 MG TAB PO SCH (09:25)
[2020-03-14] MEDS: FERROUS SULFATE 325 MG TABLET.DR PO SCH (09:25)
--- NOTE | 2020-03-14 12:02 | NUR ---
MBSS COMPLETED. -S/S OF ASPIRATION. RECOMMEND REGULAR TEXTURE, THIN LIQUIDS; PILLS WHOLE WITH LIQUIDS. RECOMMENDATIONS: 1. GI CONSULT AN OUTPATIENT GLASS CARRIER REVIEWED RESULTS AND RECOMMENDATIONS WITH Pt. HE VERBALIZED UNDERSTANDING AND COMPLIANCE. GLASS CARRIER COORDINATED WITH NURSE HIGGINS. NURSE CALLED AFTER MBSS TO REPORT RESULTS AND RECOMMENDATIONS VIA PHONE. ALL QUESTIONS ANSWERED AT THIS TIME. Addendum: 03/14/20 at 1204 by DEBBIE HOLMAN [facility] ST Amended: Links added.
[2020-03-14] MEDS: GUAIFENESIN-CODEINE 5 ML SYRUP PO PRN (13:05)
[2020-03-14] MEDS ORDERED: BENZONATATE 100 MG CAPSULE PO ONE (17:34)
[2020-03-14] MEDS: ACETAMINOPHEN 325 MG TAB PO PRN (17:39)
[2020-03-14] MEDS: BENZONATATE 100 MG CAPSULE PO SCH (20:49)
[2020-03-14] MEDS: EZETIMIBE 10 MG TAB PO SCH (20:49)
[2020-03-14] MEDS: ATORVASTATIN CALCIUM 40 MG TABLET PO SCH (20:49)
[2020-03-14] MEDS: METOPROLOL SUCCINATE 12.5 MG PO SCH (20:55)
[2020-03-15] MEDS: IPRATROPIUM/ALBUTEROL SULFATE 3 ML SOLUTION IH SCH ×6 (02:35→21:28)
[2020-03-15 03:42] VITALS: BP 117/59
[2020-03-15] MEDS: LEVOTHYROXINE 75 MCG TABLET PO SCH (05:23)
[2020-03-15] MEDS: BENZONATATE 100 MG CAPSULE PO SCH ×3 (05:24→21:15)
[2020-03-15] MEDS: INSULIN HUMULIN R 100 UNIT/ML 3ML SQ SCH ×4 (05:27→22:04)
[2020-03-15 05:32] LABS: BASOPHILS % (AUTO) 0.4 % (0.0-5.0); EOSINOPHILS % (AUTO) 2.2 % (0.0-8.0); HEMATOCRIT 22.8 % (42-54); LYMPHOCYTES % (AUTO) 7.1 % (21.0-51.0); MEAN CORPUSCULAR HEMOGLOBIN 31.9 pg (27.0-33.0); MEAN CORPUSCULAR VOLUME 99.6 fL (79-99); MONOCYTES % (AUTO) 8.5 % (3.0-13.0); NEUTROPHILS % (AUTO) 81.6 % (40.0-77.0); PLATELET COUNT (AUTO) 111 K/uL (130-400); RED BLOOD CELL COUNT(AUTO) 2.29 MIL/uL (4.50-6.20); RED CELL DISTRIBUTION WIDTH 14.8 % (11.0-15.5); WHITE BLOOD COUNT (AUTO) 4.5 K/uL (4.8-10.8)
[2020-03-15 06:05] LABS: ALBUMIN 2.4 g/dL (3.5-5.0); CREATININE 1.2 mg/dL (0.5-1.5); POTASSIUM 3.2 mmol/L (3.5-5.1); THYROID STIMULATING HORMONE 1.02 uIU/mL (0.36-3.74); TOTAL PROTEIN, SERUM 5.4 g/dL (6.0-8.3)
[2020-03-15 08:55] VITALS: BP 135/63
[2020-03-15] MEDS: DOCUSATE SODIUM 100 MG CAP PO SCH ×2 (09:03→21:16)
[2020-03-15] MEDS: PREGABALIN 25 MG CAP PO SCH ×2 (09:03→21:16)
[2020-03-15] MEDS: AMIODARONE HCL 200 MG TABLET PO SCH (09:04)
[2020-03-15] MEDS: CLOPIDOGREL BISULFATE 75 MG TAB PO SCH (09:04)
[2020-03-15] MEDS: FAMOTIDINE 20MG TAB 20 MG TAB PO SCH (09:04)
[2020-03-15] MEDS: FERROUS SULFATE 325 MG TABLET.DR PO SCH (09:04)
[2020-03-15] MEDS: BISACODYL 5 MG TABLET.DR PO SCH (09:04)
[2020-03-15] MEDS: TAMSULOSIN HCL 0.4 MG CAP.ER.24H PO SCH (09:04)
[2020-03-15] MEDS: ACETAMINOPHEN 325 MG TAB PO PRN ×2 (09:05→21:16)
[2020-03-15] MEDS: ASPIRIN 81MG TAB.CHEW PO SCH (09:05)
[2020-03-15] MEDS ORDERED: POTASSIUM CHLORIDE 10% ELIXIR 20 MEQ/15 ML UDCUP PO PRN (09:45)
[2020-03-15] MEDS ORDERED: POTASSIUM CHLORIDE 20MEQ/100ML 100 ML IV PRN (09:45)
[2020-03-15] MEDS ORDERED: LIDOCAINE HCL-MPF 1% 2ML VIAL IV PRN (09:45)
[2020-03-15] MEDS: CEFTRIAXONE SODIUM 1 GM IVP SCH (11:48)
[2020-03-15 12:00] VITALS: BP 125/58
--- NOTE | 2020-03-15 13:46 | NUR ---
CM NOTE/DECLINED SNF MET WITH PATIENT AT BEDSIDE TO DISCUSS DC PLANNING. PATIENT, WISHES TO GO HOME AND DECLINING SNF AT THE MOMENT. STATES " I WENT TO A [facility] LAST TIME I GOT SURGERY AND I REALLY DIDNT FEEL THEY PROGRESSED MY PHYSICAL THERAPY MORE THAN I WOULD HAVE DONE IF I WENT HOME WITH HOME HEALTH". PATIENT STATES HE IS A AND [facility] WITH PT ORDERS. BRINDA HAZEL FLUORESCENT LIGHTING MODEL MAKER MADE AWARE. PRIMARY NURSE TO BE MADE AWARE WHEN RETURN FROM LUNCH.
--- NOTE | 2020-03-15 15:22 | NUR ---
DR. CORTES IN ROOM SPEAKING WITH PT. RE:PLAN OF CARE. QUESTIONS ANSWERED BY DR. CORTES.
[2020-03-15 16:00] VITALS: BP 132/62
[2020-03-15] MEDS: POTASSIUM CHLORIDE 20 MEQ ERTAB PO PRN ×2 (16:03→18:31)
[2020-03-15 19:52] VITALS: BP 128/61
[2020-03-15] MEDS: METOPROLOL SUCCINATE 12.5 MG PO SCH (21:00)
[2020-03-15] MEDS: EZETIMIBE 10 MG TAB PO SCH (21:15)
[2020-03-15] MEDS: ATORVASTATIN CALCIUM 40 MG TABLET PO SCH (21:16)
--- NOTE | 2020-03-15 21:59 | NUR ---
toprol xl patient takes 12.5 of toprol at home. has not received medication. spoke with pharmacist, states we need an md order to switch to lopressor 12.5mg daily but it is not the exact equivalent. other option is for oral compound medication but would need md approval due to cost. attempted to get in contact with family so that they could bring medication tmw granddaughter tamica [phone]- line not working son, ldela-[phone]- no answer
[2020-03-15 23:47] VITALS: BP 100/52
[2020-03-16] MEDS: IPRATROPIUM/ALBUTEROL SULFATE 3 ML SOLUTION IH SCH ×6 (01:35→23:59)
[2020-03-16 04:05] VITALS: BP 139/69
[2020-03-16] MEDS: BENZONATATE 100 MG CAPSULE PO SCH ×3 (05:00→21:10)
[2020-03-16 06:05] LABS: BASOPHILS % (AUTO) 0.8 % (0.0-5.0); EOSINOPHILS % (AUTO) 2.1 % (0.0-8.0); HEMATOCRIT 23.1 % (42-54); LYMPHOCYTES % (AUTO) 8.7 % (21.0-51.0); MEAN CORPUSCULAR HEMOGLOBIN 32.6 pg (27.0-33.0); MEAN CORPUSCULAR HGB CONC 32.5 g/dL (32.0-36.0); MEAN CORPUSCULAR VOLUME 100.4 fL (79-99); MONOCYTES % (AUTO) 12.3 % (3.0-13.0); NEUTROPHILS % (AUTO) 75.5 % (40.0-77.0); PLATELET COUNT (AUTO) 127 K/uL (130-400); RED CELL DISTRIBUTION WIDTH 14.8 % (11.0-15.5); WHITE BLOOD COUNT (AUTO) 4.7 K/uL (4.8-10.8)
[2020-03-16] MEDS: INSULIN HUMULIN R 100 UNIT/ML 3ML SQ SCH ×4 (06:21→21:12)
[2020-03-16 06:27] LABS: ALBUMIN 2.4 g/dL (3.5-5.0); CREATININE 1.2 mg/dL (0.5-1.5); POTASSIUM 3.3 mmol/L (3.5-5.1); TOTAL PROTEIN, SERUM 5.5 g/dL (6.0-8.3)
[2020-03-16] MEDS: LEVOTHYROXINE 75 MCG TABLET PO SCH (07:02)
[2020-03-16] MEDS ORDERED: SODIUM CHLORIDE 3% FOR INHALATION 4 ML/AMP VIAL.NEB IH ONE (07:11)
[2020-03-16] MEDS: DOCUSATE SODIUM 100 MG CAP PO SCH ×2 (07:54→21:10)
[2020-03-16] MEDS: CLOPIDOGREL BISULFATE 75 MG TAB PO SCH (07:55)
[2020-03-16] MEDS: PREGABALIN 25 MG CAP PO SCH ×2 (07:55→21:10)
[2020-03-16] MEDS: AMIODARONE HCL 200 MG TABLET PO SCH (07:55)
[2020-03-16] MEDS: FERROUS SULFATE 325 MG TABLET.DR PO SCH (07:55)
[2020-03-16] MEDS: ASPIRIN 81MG TAB.CHEW PO SCH (07:55)
[2020-03-16] MEDS: FAMOTIDINE 20MG TAB 20 MG TAB PO SCH (07:55)
[2020-03-16] MEDS: TAMSULOSIN HCL 0.4 MG CAP.ER.24H PO SCH (07:55)
--- NOTE | 2020-03-16 08:15 | NUR ---
ASSESSMENT PT IS AAOX3 DENIES CP DENIES SOB, BREATHING PATTERN IS EVEN AND UNLABORED. DENIES NV, NO COMPLAINTS RESTING IN BED. AM MEDS GIVEN, NO COUGHING OR CHOKING NOTED, TOLERATED MEAL. CALL LIGHT WITHIN REACH.
[2020-03-16] MEDS: BISACODYL 5 MG TABLET.DR PO SCH (09:00)
[2020-03-16 09:30] VITALS: BP 138/60
[2020-03-16] MEDS: CEFTRIAXONE SODIUM 1 GM IVP SCH (11:17)
[2020-03-16 12:50] VITALS: BP 143/79
--- NOTE | 2020-03-16 15:08 | NUR ---
FOLLOW UP COMPLETED. Pt CURRENTLY TOLERATING REGULAR TEXTURE, THIN LIQUIDS. NO OVERT S/S OF ASPIRATION AT THIS TIME. CYLINDER INSPECTOR AND TESTER COORDINATED WITH NURSE CHENEY. SKILLED SPEECH THERAPY IS NOT RECOMMENDED AT THIS TIME. Addendum: 03/16/20 at 1513 by DEBBIE HOLMAN, [facility] ST Amended: Links added.
--- NOTE | 2020-03-16 15:29 | NUR ---
HOSPITALIST ROUNDING QUESTIONS HOME [facility] FOR DISCHARGE I CALLED DR GOMEZ, UPDATES GIVEN TO DR GOMEZ HE STATES OK TO RESUME ALL HOME MEDS
[2020-03-16] MEDS ORDERED: RIVAROXABAN 20 MG TABLET PO SCH (15:30)
[2020-03-16 16:00] VITALS: BP 120/63
[2020-03-16] MEDS: GUAIFENESIN-CODEINE 5 ML SYRUP PO PRN (16:13)
[2020-03-16] MEDS: BENZOCAINE/MENTH/CETYLPYRD CL 1 EACH LOZENGE MM PRN (16:17)
[2020-03-16 20:32] VITALS: BP 145/71
[2020-03-16] MEDS: METOPROLOL SUCCINATE 12.5 MG PO SCH (21:00)
[2020-03-16] MEDS: ATORVASTATIN CALCIUM 40 MG TABLET PO SCH (21:10)
[2020-03-16] MEDS: EZETIMIBE 10 MG TAB PO SCH (21:10)
[2020-03-16 23:55] VITALS: BP 146/65
[2020-03-17] MEDS: BENZOCAINE/MENTH/CETYLPYRD CL 1 EACH LOZENGE MM PRN (01:45)
[2020-03-17 04:16] VITALS: BP 141/64
[2020-03-17] MEDS: BENZONATATE 100 MG CAPSULE PO SCH ×3 (04:46→20:58)
[2020-03-17 05:23] LABS: BASOPHILS % (AUTO) 0.5 % (0.0-5.0); EOSINOPHILS % (AUTO) 1.1 % (0.0-8.0); HEMATOCRIT 25.3 % (42-54); MEAN CORPUSCULAR HEMOGLOBIN 31.9 pg (27.0-33.0); MEAN CORPUSCULAR VOLUME 99.6 fL (79-99); MONOCYTES % (AUTO) 9.6 % (3.0-13.0); NEUTROPHILS % (AUTO) 79.7 % (40.0-77.0); PLATELET COUNT (AUTO) 146 K/uL (130-400); RED BLOOD CELL COUNT(AUTO) 2.54 MIL/uL (4.50-6.20); WHITE BLOOD COUNT (AUTO) 5.6 K/uL (4.8-10.8)
[2020-03-17] MEDS: INSULIN HUMULIN R 100 UNIT/ML 3ML SQ SCH ×4 (05:23→21:06)
[2020-03-17 05:30] LABS: CREATININE 1.1 mg/dL (0.5-1.5); POTASSIUM 3.7 mmol/L (3.5-5.1)
[2020-03-17] MEDS: LEVOTHYROXINE 75 MCG TABLET PO SCH (06:22)
[2020-03-17] MEDS: IPRATROPIUM/ALBUTEROL SULFATE 3 ML SOLUTION IH SCH ×4 (06:42→23:36)
[2020-03-17 07:57] VITALS: BP 134/65
--- NOTE | 2020-03-17 08:00 | NUR ---
ASSESSMENT PT IS AAOX3 DENIES CP DENIES SOB, BREATHING PATTERN IS EVEN AND UNLABORED. DENIES NV, NO COMPLAINTS RESTING SITTING UP AT BEDSIDE. AM MEDS GIVEN, CALL LIGHT WITHIN REACH.
[2020-03-17] MEDS: FERROUS SULFATE 325 MG TABLET.DR PO SCH (08:10)
[2020-03-17] MEDS: FAMOTIDINE 20MG TAB 20 MG TAB PO SCH (08:10)
[2020-03-17] MEDS: AMIODARONE HCL 200 MG TABLET PO SCH (08:10)
[2020-03-17] MEDS: TAMSULOSIN HCL 0.4 MG CAP.ER.24H PO SCH (08:10)
[2020-03-17] MEDS: BISACODYL 5 MG TABLET.DR PO SCH (08:10)
[2020-03-17] MEDS: CLOPIDOGREL BISULFATE 75 MG TAB PO SCH (08:10)
[2020-03-17] MEDS: PREGABALIN 25 MG CAP PO SCH ×2 (08:10→20:58)
[2020-03-17] MEDS: DOCUSATE SODIUM 100 MG CAP PO SCH ×2 (08:10→20:57)
[2020-03-17] MEDS: RIVAROXABAN 20 MG TABLET PO SCH (08:10)
[2020-03-17] MEDS: ASPIRIN 81MG TAB.CHEW PO SCH (08:11)
[2020-03-17] MEDS: CEFTRIAXONE SODIUM 1 GM IVP SCH (10:38)
--- NOTE | 2020-03-17 12:30 | NUR ---
NEVA AGUIRRE ROUNDED SAW PATIENT ORDERS RECEIVED
[2020-03-17 12:39] VITALS: BP 137/54
[2020-03-17] MEDS ORDERED: PREDNISONE 20 MG TABLET PO SCH (13:00)
[2020-03-17] MEDS: AMOXICILLIN/POTASSIUM CLAV 875-125 TABLET PO SCH (13:03)
[2020-03-17 16:21] VITALS: BP 159/85
[2020-03-17] MEDS: BUDESONIDE 0.5 MG/2 ML INH IH SCH (18:38)
[2020-03-17 19:00] VITALS: BP 140/74
[2020-03-17] MEDS: ATORVASTATIN CALCIUM 40 MG TABLET PO SCH (20:58)
[2020-03-17] MEDS: EZETIMIBE 10 MG TAB PO SCH (20:58)
[2020-03-17] MEDS: METOPROLOL SUCCINATE 12.5 MG PO SCH (21:00)
[2020-03-17 23:21] VITALS: BP 152/72
[2020-03-18] MEDS: AMOXICILLIN/POTASSIUM CLAV 875-125 TABLET PO SCH (00:45)
[2020-03-18 03:57] VITALS: BP 135/67
[2020-03-18 05:17] LABS: BASOPHILS % (AUTO) 0.2 % (0.0-5.0); LYMPHOCYTES % (AUTO) 3.6 % (21.0-51.0); MEAN CORPUSCULAR HGB CONC 32.4 g/dL (32.0-36.0); MEAN CORPUSCULAR VOLUME 98.8 fL (79-99); MONOCYTES % (AUTO) 7.4 % (3.0-13.0); NEUTROPHILS % (AUTO) 87.7 % (40.0-77.0); PLATELET COUNT (AUTO) 171 K/uL (130-400); RED BLOOD CELL COUNT(AUTO) 2.53 MIL/uL (4.50-6.20); RED CELL DISTRIBUTION WIDTH 15.1 % (11.0-15.5); WHITE BLOOD COUNT (AUTO) 6.6 K/uL (4.8-10.8)
[2020-03-18] MEDS: BENZONATATE 100 MG CAPSULE PO SCH (05:25)
[2020-03-18 05:50] LABS: ALBUMIN 2.5 g/dL (3.5-5.0); BILIRUBIN,TOTAL 0.9 mg/dL (0.2-1.0); CREATININE 1.2 mg/dL (0.5-1.5); POTASSIUM 3.7 mmol/L (3.5-5.1); TOTAL PROTEIN, SERUM 6.1 g/dL (6.0-8.3)
[2020-03-18] MEDS: LEVOTHYROXINE 75 MCG TABLET PO SCH (05:57)
[2020-03-18] MEDS: INSULIN HUMULIN R 100 UNIT/ML 3ML SQ SCH (06:01)
[2020-03-18] MEDS: BUDESONIDE 0.5 MG/2 ML INH IH SCH (06:40)
[2020-03-18] MEDS: IPRATROPIUM/ALBUTEROL SULFATE 3 ML SOLUTION IH SCH ×2 (06:40→11:09)
--- NOTE | 2020-03-18 07:40 | NUR ---
ASSESSMENT ENCOUNTERED PT A&OX3, CALM COOPERATIVE AND DOES NOT APPEAR TO BE IN ANY DISTRESS NOR ANY NEURO DEFICITS PRESENT. PT DENIES PAIN, SOB, NAUSEA. DP/PT PULSES PALPABLE. PT IS AMBULATORY, GAIT SLOW BUT STEADY WITH ASSIST. CALL LIGHT WITHIN REACH.
[2020-03-18 08:00] VITALS: BP 137/65
[2020-03-18] MEDS: CEFTRIAXONE SODIUM 1 GM IVP SCH (09:05)
[2020-03-18] MEDS: ACETAMINOPHEN 325 MG TAB PO PRN (09:05)
[2020-03-18] MEDS: PREGABALIN 25 MG CAP PO SCH (09:06)
[2020-03-18] MEDS: RIVAROXABAN 20 MG TABLET PO SCH (09:06)
[2020-03-18] MEDS: AMIODARONE HCL 200 MG TABLET PO SCH (09:06)
[2020-03-18] MEDS: BISACODYL 5 MG TABLET.DR PO SCH (09:06)
[2020-03-18] MEDS: TAMSULOSIN HCL 0.4 MG CAP.ER.24H PO SCH (09:06)
[2020-03-18] MEDS: FAMOTIDINE 20MG TAB 20 MG TAB PO SCH (09:07)
[2020-03-18] MEDS: FERROUS SULFATE 325 MG TABLET.DR PO SCH (09:07)
[2020-03-18] MEDS: CLOPIDOGREL BISULFATE 75 MG TAB PO SCH (09:07)
[2020-03-18] MEDS: DOCUSATE SODIUM 100 MG CAP PO SCH (09:07)
[2020-03-18] MEDS ORDERED: BUDE180H IH (11:52)
[2020-03-18] MEDS ORDERED: RIVA20TA PO (11:52)
[2020-03-18] MEDS ORDERED: FERR325T22 PO (11:52)
[2020-03-18] MEDS ORDERED: CLOP75TA14 PO (11:52)
[2020-03-18] MEDS ORDERED: PRED50TA2 PO (11:52)
[2020-03-18] MEDS ORDERED: ALBU0.63 IH (11:52)
[2020-03-18] MEDS ORDERED: DOCU-116 PO (11:52)
[2020-03-18] MEDS ORDERED: AMOX-429 PO (11:52)
[2020-03-18] MEDS ORDERED: nebulizer (11:55)
[2020-03-18] MEDS ORDERED: nebulizer NEB (11:55)
[2020-03-18 12:00] VITALS: BP 115/55
--- NOTE | 2020-03-18 16:00 | NUR ---
DISCHARGE INSTRUCTIONS GIVEN, PIV REMOVED AND INTACT, DISCHARGED HOME TO FAMILY VEHICLE VIA WHEELCHAIR.
== END 2020-03-18 16:40 | disposition home health service (06) | DRG 268 ==
LOC: EDH 15:40 → EDHIP 15:41 → 4DH 21:05 → 2DH 03-10 17:28 → 4DH 03-11 20:14
PROVIDERS: ADMIT Hospitalist; ATTEND Hospitalist
PROC: 04V03DZ Restriction of Abdominal Aorta with Intraluminal Device, Percutaneous Approach (ICD-10-PCS; principal; 2020-03-10)
PROC: 04753DZ Dilation of Superior Mesenteric Artery with Intraluminal Device, Percutaneous Approach (ICD-10-PCS; 2020-03-10)
PROC: 04VD3DZ Restriction of Left Common Iliac Artery with Intraluminal Device, Percutaneous Approach (ICD-10-PCS; 2020-03-10)
PROC: B410YZZ Fluoroscopy of Abdominal Aorta using Other Contrast (ICD-10-PCS; 2020-03-10)
PROC: B414YZZ Fluoroscopy of Superior Mesenteric Artery using Other Contrast (ICD-10-PCS; 2020-03-10)
PROC: B41BYZZ Fluoroscopy of Other Intra-Abdominal Arteries using Other Contrast (ICD-10-PCS; 2020-03-10)
PROC: B418YZZ Fluoroscopy of Bilateral Renal Arteries using Other Contrast (ICD-10-PCS; 2020-03-10)
PROC: 04VC3DZ Restriction of Right Common Iliac Artery with Intraluminal Device, Percutaneous Approach (ICD-10-PCS; 2020-03-10)
DX: I71.3 Abdominal aortic aneurysm, ruptured (principal); J69.0 Pneumonitis due to inhalation of food and vomit; I50.33 Acute on chronic diastolic (congestive) heart failure; I48.21 Permanent atrial fibrillation; K55.1 Chronic vascular disorders of intestine; I25.10 Atherosclerotic heart disease of native coronary artery without angina pectoris; I71.2 Thoracic aortic aneurysm, without rupture; E03.9 Hypothyroidism, unspecified; D64.9 Anemia, unspecified; E11.51 Type 2 diabetes mellitus with diabetic peripheral angiopathy without gangrene; E78.5 Hyperlipidemia, unspecified; I11.0 Hypertensive heart disease with heart failure; I65.23 Occlusion and stenosis of bilateral carotid arteries; I25.5 Ischemic cardiomyopathy; M79.81 Nontraumatic hematoma of soft tissue; I71.00 Dissection of unspecified site of aorta; I72.3 Aneurysm of iliac artery; N40.0 Benign prostatic hyperplasia without lower urinary tract symptoms; I51.3 Intracardiac thrombosis, not elsewhere classified; Z95.0 Presence of cardiac pacemaker; Z86.79 Personal history of other diseases of the circulatory system; Z83.3 Family history of diabetes mellitus; Z82.5 Family history of asthma and other chronic lower respiratory diseases; Z82.49 Family history of ischemic heart disease and other diseases of the circulatory system; Z82.0 Family history of epilepsy and other diseases of the nervous system; Z82.3 Family history of stroke; Z72.0 Tobacco use; Z79.899 Other long term (current) drug therapy; Z79.82 Long term (current) use of aspirin; Z87.442 Personal history of urinary calculi
CPT/HCPCS: 34705; 34712; 34713; 36245; 36415; 37236; 71045; 74230; 75726; 76882; 80048; 80053; 81001; 82948; 83735; 83880; 84100; 84443; 85025; 85027; 85347; 85610; 85730; 86850; 86900; 86901; 86923; 87071; 87205; 92526; 92610; 92611; 94640; 94664; 97039; A4344; A4606; C1725; C1760; C1769; C1887; C1894; G0378; J0690; J0696; J1100; J1644; J1815; J1940; J2001; J2250; J2270; J2370; J2405; J2704; J2710; J3010; J3490; J7030; Q9967

== ENCOUNTER → 2020-03-09 | Outpatient (CLI) | payer MEDICARE ==
[~2020-03-09] MED LIST changes: +ALOG12.52 PO; -ASPI-1181 PO; +ASPI-1443 PO; +CYAN10007 IJ; -EZET10 PO; +EZET10TA13 PO; +IOHEXOL 350 MG/ML 100ML INFUS..BTL IV ONE; +IPRATROPIUM BROMIDE; +LEVO75TA10 PO; +PREG25 PO; -ROSU20TA PO; +ROSU20TA23 PO; +TRAM50TA2 PO
== END | disposition home or self-care (01) ==
LOC: RAH 08:23
PROVIDERS: ATTEND Internal Medicine Cardiovascular Disease
DX: I25.5 Ischemic cardiomyopathy (principal); I10 Essential (primary) hypertension; I25.10 Atherosclerotic heart disease of native coronary artery without angina pectoris; R18.8 Other ascites; N28.1 Cyst of kidney, acquired
CPT/HCPCS: 71275; 74174; Q9967

== ENCOUNTER → 2020-04-08 | Outpatient (CLI) | payer MEDICARE ==
[~2020-04-08] MED LIST changes: +ALBU0.63 IH; +ALOG12.52 PO; +AMOX-429 PO; -ASPI-1443 PO; +BUDE180H IH; -CILO100T PO; -CIPR-278 PO; +CLOP75TA14 PO; +DOCU-116 PO; +FERR325T22 PO; -FERR325T29 PO; -GABA-529 PO; +IOHEXOL 350 MG/ML 100ML INFUS..BTL IV ONE; +LEVO75TA10 PO; -MAGN250T10 PO; -METO25TA3 PO; +PRED50TA2 PO; +PREG25 PO; -SPIR25TA PO; +nebulizer; +nebulizer NEB
== END | disposition home or self-care (01) ==
LOC: RAH 09:33
PROVIDERS: ATTEND Internal Medicine Cardiovascular Disease
DX: S36.92XA Contusion of unspecified intra-abdominal organ, initial encounter (principal); K68.9 Other disorders of retroperitoneum; N28.1 Cyst of kidney, acquired; N20.0 Calculus of kidney; I71.9 Aortic aneurysm of unspecified site, without rupture; K40.90 Unilateral inguinal hernia, without obstruction or gangrene, not specified as recurrent; K76.0 Fatty (change of) liver, not elsewhere classified; I70.0 Atherosclerosis of aorta; M47.816 Spondylosis without myelopathy or radiculopathy, lumbar region; Z95.818 Presence of other cardiac implants and grafts; X58.XXXA Exposure to other specified factors, initial encounter; Y93.89 Activity, other specified; Y92.89 Other specified places as the place of occurrence of the external cause; Y99.8 Other external cause status
CPT/HCPCS: 74174; 76700; Q9967

== ENCOUNTER → 2020-05-27 | Outpatient (CLI) | payer MEDICARE ==
[~2020-05-27] MED LIST changes: -IOHEXOL 350 MG/ML 100ML INFUS..BTL IV ONE; +NITR0.4T50 SL
[2020-05-27 09:07] LABS: BASOPHILS % (AUTO) 0.4 % (0.0-5.0); EOSINOPHILS % (AUTO) 0.9 % (0.0-8.0); HEMATOCRIT 33.6 % (42-54); LYMPHOCYTES % (AUTO) 10.3 % (21.0-51.0); MEAN CORPUSCULAR HEMOGLOBIN 28.8 pg (27.0-33.0); MEAN CORPUSCULAR HGB CONC 30.4 g/dL (32.0-36.0); MEAN CORPUSCULAR VOLUME 94.9 fL (79-99); MONOCYTES % (AUTO) 7.7 % (3.0-13.0); NEUTROPHILS % (AUTO) 80.6 % (40.0-77.0); PLATELET COUNT (AUTO) 142 K/uL (130-400); RED BLOOD CELL COUNT(AUTO) 3.54 MIL/uL (4.50-6.20); RED CELL DISTRIBUTION WIDTH 15.6 % (11.0-15.5); WHITE BLOOD COUNT (AUTO) 6.8 K/uL (4.8-10.8)
[2020-05-27 09:34] LABS: CREATININE 2.2 mg/dL (0.5-1.5); POTASSIUM 4.4 mmol/L (3.5-5.1)
[2020-05-27 09:37] LABS: APPEARANCE,URINE Clear (CLEAR); BILIRUBIN,URINE Negative (NEGATIVE); COLOR,URINE Yellow (YELLOW); GLUCOSE, URINE (UA) Negative (NEGATIVE); KETONES,URINE Trace mg/dL (NEGATIVE); LEUKOCYTE ESTERASE ,URINE Trace (NEGATIVE); NITRATE,URINE Negative (NEGATIVE); OCCULT BLOOD,URINE Small (NEGATIVE); PH,URINE 5.5 (5.0-8.0); PROTEIN,URINE POS 2+ mg/dL (NEGATIVE)
[2020-05-27 10:00] LABS: BACTERIA,URINE Few /HPF (None Seen); SQUAMOUS EPITHELIAL CELL,UR Few /HPF (0-2)
== END | disposition home or self-care (01) ==
LOC: DAH 05-24 10:00 → EDSTATUS 08:00 → DAH 10:00 → EDSTATUS 05-30 08:00
PROVIDERS: ATTEND Internal Medicine Cardiovascular Disease
DX: Z01.812 Encounter for preprocedural laboratory examination (principal); Z20.822 Contact with and (suspected) exposure to COVID-19; R94.31 Abnormal electrocardiogram [ECG] [EKG]; R91.8 Other nonspecific abnormal finding of lung field; I51.7 Cardiomegaly; Z95.0 Presence of cardiac pacemaker
CPT/HCPCS: 36415; 71045; 80048; 81001; 85025; 86850; 86900; 86901; 86923; 87088; 93005; U0003

== ENCOUNTER 2020-06-01 10:33 | Inpatient (IN) | payer OTHER, MEDICARE ==
[~2020-06-01] VITALS: Ht 167.6 cm; Wt 69.9 kg
[~2020-06-01 10:33] MED LIST changes: -NITR0.4T50 SL
[2020-06-01 11:14] LABS: BASOPHILS % (AUTO) 0.4 % (0.0-5.0); EOSINOPHILS % (AUTO) 0.2 % (0.0-8.0); HEMATOCRIT 34.5 % (42-54); LYMPHOCYTES % (AUTO) 5.6 % (21.0-51.0); MEAN CORPUSCULAR HEMOGLOBIN 28.7 pg (27.0-33.0); MEAN CORPUSCULAR HGB CONC 31.3 g/dL (32.0-36.0); MEAN CORPUSCULAR VOLUME 91.8 fL (79-99); MONOCYTES % (AUTO) 10.7 % (3.0-13.0); NEUTROPHILS % (AUTO) 82.9 % (40.0-77.0); NUCLEATED RED BLOOD CELLS 0.4 % (0.0-0.19); PLATELET COUNT (AUTO) 152 K/uL (130-400); RED BLOOD CELL COUNT(AUTO) 3.76 MIL/uL (4.50-6.20); RED CELL DISTRIBUTION WIDTH 15.9 % (11.0-15.5); WHITE BLOOD COUNT (AUTO) 8.2 K/uL (4.8-10.8)
[2020-06-01 11:36] LABS: B-TYPE NATRIURETIC PEPTIDE 1140 pg/mL (0-100)
[2020-06-01 11:41] LABS: CREATININE 2.4 mg/dL (0.5-1.5); POTASSIUM 4.5 mmol/L (3.5-5.1)
[2020-06-01 11:46] LABS: ALBUMIN 3.4 g/dL (3.5-5.0); BILIRUBIN,TOTAL 1.5 mg/dL (0.2-1.0)
[2020-06-01] MEDS ORDERED: LIDOCAINE HCL-MPF 1% 2ML VIAL IV PRN (12:15)
[2020-06-01] MEDS ORDERED: POTASSIUM CHLORIDE 10% ELIXIR 20 MEQ/15 ML UDCUP PO PRN (12:15)
[2020-06-01] MEDS ORDERED: KCL 20 MEQ ERTAB PO PRN (12:15)
[2020-06-01] MEDS ORDERED: POTASSIUM CHLORIDE 10MEQ/100ML 100 ML IV PRN (12:15)
[2020-06-01 12:41] VITALS: BP 148/91
[2020-06-01 14:17] LABS: CREATINE KINASE, TOTAL 117 U/L (21-232); MYOGLOBIN 144 ng/mL (10-92); TROPONIN I < 0.04 ng/mL (0.00-0.06)
[2020-06-01] MEDS ORDERED: CLONIDINE HCL 0.1 MG TABLET PO PRN (15:00)
[2020-06-01] MEDS ORDERED: GUAIFENESIN-DM 200/20 MG 10 ML PO PRN (15:00)
[2020-06-01] MEDS ORDERED: NITROGLYCERIN 0.4 MG SL TAB SL PRN (15:00)
[2020-06-01] MEDS ORDERED: DEXTROSE 50%-WATER 50 ML DISP.SYRIN IV PRN (15:00)
[2020-06-01] MEDS ORDERED: DiphenhydrAMINE HCL 50 MG/ML VIAL IVP PRN (15:00)
[2020-06-01] MEDS ORDERED: GLUCAGON 1MG KIT 1 MG ML IM PRN (15:00)
[2020-06-01] MEDS: FUROSEMIDE 40MG VIAL IV SCH ×2 (15:10→23:53)
[2020-06-01 16:30] VITALS: BP 154/83
[2020-06-01] MEDS ORDERED: INSULIN R PO SSI SQ SCH (16:30)
[2020-06-01] MEDS: INSULIN HUMULIN R 100 UNIT/ML 3ML SQ SCH ×2 (16:30→21:49)
[2020-06-01 19:59] VITALS: BP 144/69
[2020-06-01] MEDS: CARVEDILOL 12.5 MG TABLET PO SCH (21:46)
[2020-06-01 23:09] VITALS: BP 132/69
[2020-06-02] VITALS (12 sets, daily range): BP systolic 88–137; BP diastolic 47–84
[2020-06-02 04:43] LABS: BASOPHILS % (AUTO) 0.2 % (0.0-5.0); EOSINOPHILS % (AUTO) 0.2 % (0.0-8.0); HEMATOCRIT 29.6 % (42-54); LYMPHOCYTES % (AUTO) 7.3 % (21.0-51.0); MEAN CORPUSCULAR HEMOGLOBIN 28.6 pg (27.0-33.0); MEAN CORPUSCULAR HGB CONC 31.8 g/dL (32.0-36.0); MONOCYTES % (AUTO) 12.9 % (3.0-13.0); NEUTROPHILS % (AUTO) 79.1 % (40.0-77.0); NUCLEATED RED BLOOD CELLS 0.3 % (0.0-0.19); PLATELET COUNT (AUTO) 108 K/uL (130-400); RED BLOOD CELL COUNT(AUTO) 3.29 MIL/uL (4.50-6.20); RED CELL DISTRIBUTION WIDTH 15.7 % (11.0-15.5); WHITE BLOOD COUNT (AUTO) 6.2 K/uL (4.8-10.8)
[2020-06-02 05:00] LABS: B-TYPE NATRIURETIC PEPTIDE 1090 pg/mL (0-100)
[2020-06-02 05:04] LABS: CREATININE 2.5 mg/dL (0.5-1.5); POTASSIUM 3.9 mmol/L (3.5-5.1)
[2020-06-02] MEDS: INSULIN HUMULIN R 100 UNIT/ML 3ML SQ SCH ×4 (05:09→21:00)
[2020-06-02] MEDS: FUROSEMIDE 40MG VIAL IV SCH ×2 (06:23→21:56)
[2020-06-02] MEDS ORDERED: FUROSEMIDE 40MG VIAL IV SCH ×2 (08:30→09:00)
[2020-06-02] MEDS: CARVEDILOL 12.5 MG TABLET PO SCH ×2 (08:54→21:54)
[2020-06-02] MEDS: MILRINONE-D5W 20 MG/100 ML 100 ML IV SCH ×2 (10:32→19:28)
[2020-06-02] MEDS: ACETAMINOPHEN 325 MG TAB PO PRN ×2 (15:53→22:01)
[2020-06-02 16:16] LABS: BILIRUBIN,URINE Negative (NEGATIVE); COLOR,URINE Yellow (YELLOW); GLUCOSE, URINE (UA) Negative (NEGATIVE); KETONES,URINE Negative (NEGATIVE); LEUKOCYTE ESTERASE ,URINE Negative (NEGATIVE); NITRATE,URINE Negative (NEGATIVE); OCCULT BLOOD,URINE Trace (NEGATIVE); PROTEIN,URINE Trace mg/dL (NEGATIVE)
[2020-06-02 16:19] LABS: SODIUM,URINE RANDOM 103 mmol/l (40-220)
[2020-06-02 16:25] LABS: APPEARANCE,URINE CLEAR (CLEAR)
[2020-06-02 16:39] LABS: BACTERIA,URINE Rare /HPF (None Seen); RBC,URINE 0-1 /HPF (0-1); SQUAMOUS EPITHELIAL CELL,UR None Seen /HPF (0-2); WBC,URINE 0-1 /HPF (0-1)
[2020-06-03] VITALS (7 sets, daily range): BP systolic 72–122; BP diastolic 35–61
[2020-06-03 04:35] LABS: BASOPHILS % (AUTO) 0.4 % (0.0-5.0); EOSINOPHILS % (AUTO) 1.9 % (0.0-8.0); HEMATOCRIT 26.5 % (42-54); LYMPHOCYTES % (AUTO) 8.5 % (21.0-51.0); MEAN CORPUSCULAR HEMOGLOBIN 28.3 pg (27.0-33.0); MEAN CORPUSCULAR HGB CONC 31.7 g/dL (32.0-36.0); MEAN CORPUSCULAR VOLUME 89.2 fL (79-99); MONOCYTES % (AUTO) 10.4 % (3.0-13.0); NEUTROPHILS % (AUTO) 78.4 % (40.0-77.0); PLATELET COUNT (AUTO) 110 K/uL (130-400); RED BLOOD CELL COUNT(AUTO) 2.97 MIL/uL (4.50-6.20); RED CELL DISTRIBUTION WIDTH 15.7 % (11.0-15.5); WHITE BLOOD COUNT (AUTO) 5.7 K/uL (4.8-10.8)
[2020-06-03 04:50] LABS: % IRON SATURATION 5.6 % (30-44)
[2020-06-03 05:16] LABS: ALBUMIN 2.4 g/dL (3.5-5.0); BILIRUBIN,TOTAL 1.2 mg/dL (0.2-1.0); THYROID STIMULATING HORMONE 2.15 uIU/mL (0.36-3.74); TOTAL PROTEIN, SERUM 5.1 g/dL (6.0-8.3); URIC ACID 6.2 mg/dL (2.6-7.2)
[2020-06-03 05:31] LABS: B-TYPE NATRIURETIC PEPTIDE 405 pg/mL (0-100)
[2020-06-03] MEDS: FUROSEMIDE 40MG VIAL IV SCH ×3 (06:21→21:42)
[2020-06-03 06:24] LABS: POTASSIUM 2.9 mmol/L (3.5-5.1)
[2020-06-03] MEDS: INSULIN HUMULIN R 100 UNIT/ML 3ML SQ SCH ×3 (07:30→21:57)
[2020-06-03] MEDS ORDERED: LIDOCAINE HCL-MPF 1% 2ML VIAL IV PRN ×2 (08:30)
[2020-06-03] MEDS ORDERED: POTASSIUM CHLORIDE 10MEQ/100ML 100 ML IV PRN ×2 (08:30)
[2020-06-03] MEDS: Vitamin B Complex/Vit C/Folic Acid PO SCH (10:12)
[2020-06-03] MEDS: POTASSIUM CHLORIDE 10% ELIXIR 20 MEQ/15 ML UDCUP PO PRN ×2 (10:17→14:11)
[2020-06-03] MEDS ORDERED: PHARMACY COMMUNICATION MISC SCH (15:15)
[2020-06-03] MEDS ORDERED: COMPOUND IV MISC 1 EACH IVSOLN MISC PRN (15:15)
[2020-06-03] MEDS: IRON SUCROSE COMPLEX 300 MG in 0.9% NACL 250ML 250 ML IVP SCH (21:42)
[2020-06-03] MEDS: ACETAMINOPHEN 325 MG TAB PO PRN (21:45)
[2020-06-04 04:00] VITALS: BP 129/76
[2020-06-04 05:23] LABS: HEMATOCRIT 27.1 % (42-54); MEAN CORPUSCULAR HEMOGLOBIN 27.9 pg (27.0-33.0); MEAN CORPUSCULAR HGB CONC 31.7 g/dL (32.0-36.0); RED BLOOD CELL COUNT(AUTO) 3.08 MIL/uL (4.50-6.20); RED CELL DISTRIBUTION WIDTH 15.8 % (11.0-15.5); WHITE BLOOD COUNT (AUTO) 4.9 K/uL (4.8-10.8)
[2020-06-04] MEDS: INSULIN HUMULIN R 100 UNIT/ML 3ML SQ SCH ×4 (05:41→22:15)
[2020-06-04 05:42] LABS: CREATININE 3.2 mg/dL (0.5-1.5); MAGNESIUM 1.9 mg/dL (1.80-2.40); PHOSPHORUS 3.5 mg/dL (2.5-4.9); POTASSIUM 3.4 mmol/L (3.5-5.1)
[2020-06-04] MEDS: FUROSEMIDE 40MG VIAL IV SCH ×4 (05:59→22:13)
[2020-06-04] MEDS: KCL 20 MEQ ERTAB PO PRN ×2 (06:04→11:02)
[2020-06-04] MEDS ORDERED: DOBUTAMINE 500 MG/D5% WATER 250 ML IV SCH (07:15)
[2020-06-04 09:07] VITALS: BP 134/69
[2020-06-04] MEDS: Vitamin B Complex/Vit C/Folic Acid PO SCH (11:02)
[2020-06-04] MEDS: CARVEDILOL 6.25 MG TABLET PO SCH ×2 (11:03→22:12)
[2020-06-04 11:58] VITALS: BP 121/70
[2020-06-04 18:21] VITALS: BP 111/65
[2020-06-04 19:33] VITALS: BP 116/66
[2020-06-04] MEDS: IRON SUCROSE COMPLEX 300 MG in 0.9% NACL 250ML 250 ML IVP SCH (22:14)
[2020-06-05 00:05] VITALS: BP 114/54
[2020-06-05 03:20] VITALS: BP 123/73
[2020-06-05 05:42] LABS: CREATININE 2.8 mg/dL (0.5-1.5)
[2020-06-05 05:55] LABS: POTASSIUM 2.9 mmol/L (3.5-5.1)
[2020-06-05] MEDS: INSULIN HUMULIN R 100 UNIT/ML 3ML SQ SCH ×4 (07:30→20:52)
[2020-06-05 08:00] VITALS: BP 130/71
[2020-06-05] MEDS: Vitamin B Complex/Vit C/Folic Acid PO SCH (10:06)
[2020-06-05] MEDS: CARVEDILOL 6.25 MG TABLET PO SCH ×2 (10:07→20:05)
[2020-06-05] MEDS: FUROSEMIDE 40MG VIAL IV SCH ×2 (10:07→20:05)
[2020-06-05 10:23] LABS: COLLECTION PERIOD,URINE 24 HR; TOTAL VOLUME 24HRS,URINE 4200 mL; TPROTEIN TIMED,URINE 37 mg/dL; TPROTEIN U,24HR CALC 1554 mg/24HR (0-165)
[2020-06-05 12:00] VITALS: BP 118/66
[2020-06-05] MEDS: DOBUTAMINE 250MG/D5 250ML 250 ML IV SCH ×2 (12:28)
[2020-06-05] MEDS ORDERED: DIPHENHYDRAMINE HCL 50 MG CAPSULE PO PRN (15:15)
[2020-06-05] MEDS ORDERED: DIPHENHYDRAMINE HCL 25 MG CAPSULE PO PRN (16:45)
[2020-06-05 17:29] VITALS: BP 124/67
[2020-06-05 19:20] VITALS: BP 131/69
[2020-06-05] MEDS: KCL 20 MEQ ERTAB PO PRN (20:07)
[2020-06-05] MEDS: IRON SUCROSE COMPLEX 300 MG in 0.9% NACL 250ML 250 ML IVP SCH (21:05)
[2020-06-06] VITALS (7 sets, daily range): BP systolic 128–142; BP diastolic 65–80
[2020-06-06] MEDS: ACETAMINOPHEN 325 MG TAB PO PRN ×2 (04:22→16:50)
[2020-06-06 05:34] LABS: BASOPHILS % (AUTO) 0.3 % (0.0-5.0); EOSINOPHILS % (AUTO) 2.9 % (0.0-8.0); HEMATOCRIT 27.7 % (42-54); LYMPHOCYTES % (AUTO) 10.8 % (21.0-51.0); MEAN CORPUSCULAR HEMOGLOBIN 27.9 pg (27.0-33.0); MEAN CORPUSCULAR VOLUME 89.9 fL (79-99); NEUTROPHILS % (AUTO) 70.5 % (40.0-77.0); NUCLEATED RED BLOOD CELLS 0.5 % (0.0-0.19); PLATELET COUNT (AUTO) 99 K/uL (130-400); RED BLOOD CELL COUNT(AUTO) 3.08 MIL/uL (4.50-6.20); RED CELL DISTRIBUTION WIDTH 16.3 % (11.0-15.5); WHITE BLOOD COUNT (AUTO) 6.3 K/uL (4.8-10.8)
[2020-06-06 05:56] LABS: CREATININE 2.5 mg/dL (0.5-1.5)
[2020-06-06] MEDS: INSULIN HUMULIN R 100 UNIT/ML 3ML SQ SCH ×4 (06:07→21:00)
[2020-06-06 06:14] LABS: POTASSIUM 2.9 mmol/L (3.5-5.1)
[2020-06-06 07:08] LABS: CREATININE 2.6 mg/dL (0.5-1.5)
[2020-06-06 07:26] LABS: POTASSIUM 2.9 mmol/L (3.5-5.1)
[2020-06-06] MEDS: CARVEDILOL 6.25 MG TABLET PO SCH ×2 (09:24→21:49)
[2020-06-06] MEDS: Vitamin B Complex/Vit C/Folic Acid PO SCH (09:24)
[2020-06-06] MEDS: FUROSEMIDE 40MG VIAL IV SCH ×2 (09:25→21:48)
[2020-06-06] MEDS: POTASSIUM CHLORIDE 10% ELIXIR 20 MEQ/15 ML UDCUP PO PRN ×4 (09:26→16:42)
[2020-06-06] MEDS ORDERED: POTASSIUM CHLORIDE 10% ELIXIR 20 MEQ/15 ML UDCUP PO PRN (14:30)
[2020-06-06] MEDS ORDERED: KCL 20 MEQ ERTAB PO PRN (14:30)
[2020-06-06] MEDS ORDERED: LIDOCAINE HCL-MPF 1% 2ML VIAL IV PRN (14:30)
[2020-06-06] MEDS ORDERED: EPOETIN ALFA 10,000 UNIT/ML VIAL SQ SCH ×2 (14:30→20:00)
[2020-06-06] MEDS ORDERED: POTASSIUM CHLORIDE 10MEQ/100ML 100 ML IV PRN (14:30)
[2020-06-06] MEDS: DOBUTAMINE 250MG/D5 250ML 250 ML IV SCH (15:06)
[2020-06-06] MEDS ORDERED: EPOETIN ALFA-EPBX (ESRD) 10,000 UNIT/ML VIAL SQ SCH (21:00)
[2020-06-06] MEDS: KCL 20 MEQ ERTAB PO PRN (21:54)
[2020-06-07 04:15] VITALS: BP 129/65
[2020-06-07] MEDS: DOBUTAMINE 250MG/D5 250ML 250 ML IV SCH (04:27)
[2020-06-07] MEDS: KCL 20 MEQ ERTAB PO PRN ×3 (04:55→08:50)
[2020-06-07 05:25] LABS: BASOPHILS % (AUTO) 0.3 % (0.0-5.0); CREATININE 2.6 mg/dL (0.5-1.5); EOSINOPHILS % (AUTO) 0.8 % (0.0-8.0); HEMATOCRIT 28.5 % (42-54); LYMPHOCYTES % (AUTO) 11.3 % (21.0-51.0); MAGNESIUM 1.9 mg/dL (1.80-2.40); MEAN CORPUSCULAR HEMOGLOBIN 28.6 pg (27.0-33.0); MEAN CORPUSCULAR HGB CONC 31.6 g/dL (32.0-36.0); MEAN CORPUSCULAR VOLUME 90.5 fL (79-99); MONOCYTES % (AUTO) 12.5 % (3.0-13.0); NEUTROPHILS % (AUTO) 74.8 % (40.0-77.0); PLATELET COUNT (AUTO) 109 K/uL (130-400); POTASSIUM 3.4 mmol/L (3.5-5.1); RED BLOOD CELL COUNT(AUTO) 3.15 MIL/uL (4.50-6.20); RED CELL DISTRIBUTION WIDTH 16.4 % (11.0-15.5); WHITE BLOOD COUNT (AUTO) 6.2 K/uL (4.8-10.8)
[2020-06-07] MEDS: INSULIN HUMULIN R 100 UNIT/ML 3ML SQ SCH ×4 (06:18→20:55)
[2020-06-07 08:40] VITALS: BP 132/61
[2020-06-07] MEDS: Vitamin B Complex/Vit C/Folic Acid PO SCH (08:48)
[2020-06-07] MEDS: CARVEDILOL 6.25 MG TABLET PO SCH ×2 (08:48→20:55)
[2020-06-07] MEDS: FUROSEMIDE 40 MG TABLET PO SCH ×2 (08:49→17:26)
[2020-06-07 12:11] VITALS: BP 110/62
[2020-06-07 16:33] VITALS: BP 119/68
[2020-06-07 20:40] VITALS: BP 136/72
[2020-06-07] MEDS: ACETAMINOPHEN 325 MG TAB PO PRN (21:30)
[2020-06-07 23:27] VITALS: BP 128/59
[2020-06-08 03:40] VITALS: BP 130/70
[2020-06-08 05:15] LABS: BASOPHILS % (AUTO) 0.6 % (0.0-5.0); EOSINOPHILS % (AUTO) 1.7 % (0.0-8.0); HEMATOCRIT 28.6 % (42-54); LYMPHOCYTES % (AUTO) 12.8 % (21.0-51.0); MEAN CORPUSCULAR HEMOGLOBIN 28.4 pg (27.0-33.0); MEAN CORPUSCULAR HGB CONC 31.1 g/dL (32.0-36.0); MEAN CORPUSCULAR VOLUME 91.4 fL (79-99); MONOCYTES % (AUTO) 10.2 % (3.0-13.0); NEUTROPHILS % (AUTO) 74.3 % (40.0-77.0); PLATELET COUNT (AUTO) 104 K/uL (130-400); RED BLOOD CELL COUNT(AUTO) 3.13 MIL/uL (4.50-6.20); RED CELL DISTRIBUTION WIDTH 17.1 % (11.0-15.5); WHITE BLOOD COUNT (AUTO) 5.4 K/uL (4.8-10.8)
[2020-06-08 05:21] LABS: B-TYPE NATRIURETIC PEPTIDE 665 pg/mL (0-100)
[2020-06-08 05:30] LABS: ALBUMIN 2.5 g/dL (3.5-5.0); BILIRUBIN,TOTAL 1.1 mg/dL (0.2-1.0); CREATININE 2.2 mg/dL (0.5-1.5); POTASSIUM 3.2 mmol/L (3.5-5.1); TOTAL PROTEIN, SERUM 5.8 g/dL (6.0-8.3)
[2020-06-08] MEDS: INSULIN HUMULIN R 100 UNIT/ML 3ML SQ SCH ×3 (05:55→16:30)
[2020-06-08] MEDS: KCL 20 MEQ ERTAB PO PRN ×2 (06:19→09:26)
[2020-06-08 07:30] VITALS: BP 144/81
[2020-06-08] MEDS ORDERED: NITR0.4T50 SL (07:57)
[2020-06-08] MEDS: Vitamin B Complex/Vit C/Folic Acid PO SCH (09:22)
[2020-06-08] MEDS: FUROSEMIDE 40 MG TABLET PO SCH (09:23)
[2020-06-08] MEDS: CARVEDILOL 6.25 MG TABLET PO SCH (09:23)
[2020-06-08 11:00] VITALS: BP 129/78
[2020-06-08 16:00] VITALS: BP 132/61
== END 2020-06-08 17:40 | DRG 291 ==
LOC: EDH 10:33 → EDHIP 10:34 → 4CH 12:34 → 4DH 06-02 08:40
PROVIDERS: ADMIT Hospitalist; ATTEND Hospitalist
DX: I13.0 Hypertensive heart and chronic kidney disease with heart failure and stage 1 through stage 4 chronic kidney disease, or unspecified chronic kidney disease (principal); I50.43 Acute on chronic combined systolic (congestive) and diastolic (congestive) heart failure; N17.9 Acute kidney failure, unspecified; E87.1 Hypo-osmolality and hyponatremia; I48.20 Chronic atrial fibrillation, unspecified; N18.4 Chronic kidney disease, stage 4 (severe); N28.1 Cyst of kidney, acquired; E11.22 Type 2 diabetes mellitus with diabetic chronic kidney disease; I71.4 Abdominal aortic aneurysm, without rupture; I50.82 Biventricular heart failure; E78.5 Hyperlipidemia, unspecified; N40.0 Benign prostatic hyperplasia without lower urinary tract symptoms; I25.10 Atherosclerotic heart disease of native coronary artery without angina pectoris; M85.80 Other specified disorders of bone density and structure, unspecified site; I65.29 Occlusion and stenosis of unspecified carotid artery; I25.5 Ischemic cardiomyopathy; E11.51 Type 2 diabetes mellitus with diabetic peripheral angiopathy without gangrene; M25.552 Pain in left hip; E87.6 Hypokalemia; E83.51 Hypocalcemia; I95.9 Hypotension, unspecified; D69.6 Thrombocytopenia, unspecified; R74.01 Elevation of levels of liver transaminase levels; D64.9 Anemia, unspecified; R53.81 Other malaise; D72.810 Lymphocytopenia; Z83.3 Family history of diabetes mellitus; Z82.49 Family history of ischemic heart disease and other diseases of the circulatory system; Z82.3 Family history of stroke; Z82.5 Family history of asthma and other chronic lower respiratory diseases; Z82.0 Family history of epilepsy and other diseases of the nervous system; Z80.9 Family history of malignant neoplasm, unspecified; Z86.73 Personal history of transient ischemic attack (TIA), and cerebral infarction without residual deficits; Z87.891 Personal history of nicotine dependence; Z95.810 Presence of automatic (implantable) cardiac defibrillator; Z95.5 Presence of coronary angioplasty implant and graft; Z86.79 Personal history of other diseases of the circulatory system
CPT/HCPCS: 36415; 70450; 71045; 73521; 76770; 80048; 80053; 81001; 82533; 82550; 82948; 83540; 83550; 83735; 83874; 83880; 83930; 83935; 84100; 84132; 84156; 84300; 84443; 84484; 84550; 85025; 85027; 93005; 93306; 97039; G0378; J0885; J1200; J1250; J1756; J1815; J1940; J2260; J3490; J7050

== ENCOUNTER → 2020-07-28 | Outpatient (CLI) | payer MEDICARE ==
[~2020-07-28] MED LIST changes: -AMOX-429 PO; -BUDE180H IH; -DOCU-116 PO; -FERR325T22 PO; +NITR0.4T50 SL; -PRED50TA2 PO; -nebulizer; -nebulizer NEB
== END | disposition home or self-care (01) ==
LOC: RAH 10:00
PROVIDERS: ATTEND Internal Medicine Cardiovascular Disease
DX: R60.9 Edema, unspecified (principal)
CPT/HCPCS: 93970